=== PATIENT | male | born 1945 | race Caucasian/White ===

== ENCOUNTER 2018-09-01 17:04 | Inpatient (IN) ==
[2018-09-01] MEDS ORDERED: IOPAMIDOL 100 ML BOTTLE IV ONE (17:05)
--- NOTE | 2018-09-01 18:02 | Emergency Department Note ---
Weakness HPI - General Chief complaint: Weakness Stated complaint: headache, lethargy Time Seen by Provider: 09/01/18 17:25 Source: patient, family Mode of arrival: wheelchair Limitations: no limitations - History of Present Illness HPI Narrative: 73-year-old male in ED with present. When inquired with patient what brings him in he advises low back pain. advises patient has "been out of it for 1 week". He has been only eating one cup a yogurt a day and a little bit of water. He is still taking antibiotics from sinusitis one week ago. This is his third trip to the ER in the last month and he was transported to his cardiac doctor on August 17. Candle Maker advised her heart looks good and was returned home the next day. He was diagnosed with influenza and a at that time. Patient does have a history of osteoarthritis. states she has had to wake him up all week which is not normal. And he has been using his CPAP all day while sleeping. Today upon arrival into the ER he was 88% on room air. Patient does still have a cough. Patient unable to answer questions he does have slight altered mentation. states he remembers something for a little while such as the date. Patient did advise it was August and and originally stated was 1999 then slowly6 corrected to 2018. Does not know the date or who the president is or why he is here. Complaint: generalized weakness, lack of energy Onset (ago): week(s) (1) Duration: constant Location: generalized Improves with: none Worsens with: none Context: recent illness (influenza A and sinusitis) Associated symptoms: Reports: confusion, headaches, loss of appetite, shortness of breath. Denies: chest pain, dark stools, diaphoresis, dysuria, easy bruising, fever/chills, nausea/vomiting - Related Data Home Medications Medication Instructions Recorded Confirmed allopurinol 300 mg tablet 300 mg PO QDAY 01/16/15 09/02/18 amlodipine 10 mg tablet 10 mg PO QDAY 01/16/15 09/02/18 aspirin 325 mg tablet 325 mg PO QDAY 01/16/15 09/02/18 atorvastatin 40 mg tablet 40 mg PO QDAY 01/16/15 09/02/18 clonidine HCl 0.2 mg tablet 0.2 mg PO QDAY tab 01/16/15 09/02/18 fenofibrate nanocrystallized 145 145 mg PO QDAY 01/16/15 09/02/18 mg tablet furosemide 20 mg tablet 20 mg PO BID tab 01/16/15 09/02/18 metformin 850 mg tablet 850 mg PO BID 01/16/15 09/02/18 multivitamin tablet 1 tab PO QDAY 01/16/15 09/02/18 spironolactone 25 mg tablet 25 mg PO BID 01/16/15 09/02/18 magnesium 200 mg tablet 400 mg PO QDAY tab 04/14/16 09/02/18 cyanocobalamin (vit B-12) 5,000 5,000 mcg SUBLINGUAL QDAY 08/10/16 09/02/18 mcg sublingual tablet diphenhydramine 25 4 tab-cap PO QHS tab 08/10/16 09/02/18 mg-acetaminophen 500 mg tablet glucosamine-chondroitin 2 tablet PO DAILY 08/10/16 09/02/18 lisinopril 20 mg tablet 10 mg PO BID tab 08/10/16 09/02/18 ferrous sulfate 325 mg (65 mg 325 mg PO BID tab 11/10/16 09/02/18 iron) tablet insulin glargine (U- 100) 100 See Rx Instructions .ROUTE 08/20/17 09/02/18 unit/mL subcutaneous solution .COMPLEX ml alfuzosin ER 10 mg tablet,extended 10 mg PO QDAY 07/19/18 09/02/18 release 24 hr cholecalciferol (vitamin D3) 2,000 2,000 unit PO QDAY 07/19/18 09/02/18 unit capsule gabapentin 300 mg capsule 300 mg PO BID 07/19/18 09/01/18 omega [id number] oil 1,000 mg 1 cap PO BID 07/19/18 09/01/18 (120 mg-180 mg) capsule sildenafil 100 mg tablet 100 mg PO ONCE PRN tab 07/19/18 09/02/18 tamsulosin 0.4 mg capsule 0.4 mg PO QDAY 07/19/18 09/02/18 zolpidem 10 mg tablet 10 mg PO QHS tab 07/19/18 09/01/18 Amoxicillin 500 mg PO BID 09/01/18 09/01/18 Amoxicillin/Potassium Clav 875 mg PO BID 09/01/18 09/01/18 [Augmentin] Previous Rx's Medication Instructions Recorded oxyCODONE HCL/ACETAMINOPHEN 1 tab PO Q6H PRN #30 tab 10/03/15 [Percocet 7.5-325 mg Tablet] albuterol sulfate HFA 90 2 puff INHALATION Q6H PRN #8.5 g 08/16/18 mcg/actuation aerosol inhaler Allergies Allergy/AdvReac Type Severity Reaction Status Date / Time No Known Drug Allergies Allergy Verified 08/24/18 18:20 Review of Systems All systems ED: reviewed and negative except as stated. Past Medical History - Past Medical History [facility] Narrative: All Active Problems (Last Updated 08/24/18 @ 22:22 by Nasir Granados DO) Headache (Acute) Weakness (Acute) Diabetes mellitus, type II (Chronic) Chronic kidney disease, stage III (moderate) (Chronic 06/05/12) Obesity, morbid (Chronic) BINA (obstructive sleep apnea) (Chronic) Hypertensive heart disease, 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) Hyperlipidemia (Chronic) HTN (hypertension) (Chronic) Cough (Acute) Kidney stone (Chronic ~1988) Insomnia (Chronic) Abdominal pain (Chronic) Pericardial effusion (Chronic) Mass of sacrum (Chronic) Anxiety (Chronic) Breast disorder (Chronic) Leg cramps (Chronic) Neuralgia (Chronic) GERD (gastroesophageal reflux disease) (Chronic) SOB (shortness of breath) (Chronic) Osteoarthritis (Chronic) Primary erectile dysfunction (Chronic) Systolic heart failure (Chronic) Coronary arteriosclerosis (Chronic) Iron deficiency anemia (Chronic) Schwannoma of spinal cord (Chronic) Schwannoma (Chronic) Benign prostatic hyperplasia without lower urinary tract symptoms (Chronic) Pericardial effusion (Acute) Inflamed skin tag (Acute) Shingles (Acute) Encounter for medication refill (Acute) Anemia (Chronic) Hypertensive renal disease (Chronic) History of umbilical hernia repair (Chronic) History of colon surgery (Chronic) History of colon polyps (Chronic) Vitamin D deficiency (Chronic) Renal osteodystrophy (Chronic) Peripheral neuropathy (Chronic) Obesity (Chronic) Metabolic syndrome X (Chronic) Hyperuricemia (Chronic) Hypertriglyceridemia (Chronic) Past Surgical History (Last Updated 07/19/18 @ 11:50 by Carolyn Carrillo) History of umbilical hernia repair (Chronic) History of colon surgery (Chronic) History of colon polyps (Chronic) H/O carpal tunnel repair (Chronic 06/11/15) H/O hand surgery (Chronic) H/O knee surgery (Chronic) Hx of tonsillectomy (Chronic) Family History (This Medical Record has been edited. Action required.) Maternal Grandmother Congestive heart failure Brother Atherosclerosis of coronary artery Mother Essential hypertension Congestive heart failure DMII (diabetes mellitus, type 2) Unknown Hypertension Medical history: Reports: DM, renal disease, other, CAD (coronary artery disease) Psychiatric history: Denies: anxiety, depression Surgical history ED: Reports: angioplasty/stent - Social History smoking status: Former smoker Alcohol use: Reports: None Drug use: Reports: none. Denies: marijuana Physical Exam Limitations: no limitations General appearance: alert, in no apparent distress, malaise, obese, sleepy Head: atraumatic, normocephalic, normal inspection Eye: Present: miosis (constriction). Absent: scleral icterus, conjunctival injection ENT: normal oropharynx, mucous membranes moist, TM's normal bilaterally, normal external ear exam Neck: Present: normal inspection, trachea midline. Absent: tenderness, lymphadenopathy Chest: Present: normal inspection, symmetric chest wall rise. Absent: tenderness Respiratory: Present: normal lung sounds bilaterally. Absent: respiratory distress, rales/crackles Cardiovascular: Present: regular rate, normal rhythm. Absent: systolic murmur, diastolic murmur Abdominal: Present: distention, tenderness, diminished bowel sounds. Absent: guarding, rebound, rigidity Abdominal tenderness: Present: diffuse Extremities: Present: normal inspection, pedal edema (1+ pt wearing catalina hose). Absent: tenderness Back: Present: normal inspection. Absent: tenderness, CVA tenderness (R), CVA tenderness (L) Neurological: Present: alert. Absent: oriented X3 Psychiatric: Present: depressed Skin: Present: warm, dry, intact, normal color. Absent: cool, diaphoretic Course Vital Signs Temperature 98.6 F 09/01/18 17:05 Pulse Rate 89 09/01/18 17:05 Respiratory Rate 20 09/01/18 17:05 Blood Pressure 163/71 09/01/18 17:05 Pulse Oximetry (%) 89 L 09/01/18 17:05 Temperature 97.6 F 09/05/18 09:36 Pulse Rate 80 09/05/18 09:36 Respiratory Rate 22 09/05/18 09:36 Blood Pressure 121/65 09/05/18 09:36 Pulse Oximetry (%) 93 09/05/18 09:36 Weakness - MDM Narrative Medical decision making narrative: Patient arrived in the ED with shortness of breath and 88% SPO2 on room air. Patient also with altered mental status. Pt does not recall the last 3 weeks, he is able to discuss his family. Place patient on oxygen sat him straight out patient quickly increases his SPO2 to 96-97 on 2 L. Patient is oriented to self and intermittently can appropriately answer questions. WBC 10.8 which is decreased from 8 days ago. Patient's anemia stable slightly improving. Sodium 128, potassium 5.0, anion gap 11, BUN 31, creatinine 1.2, gl ucose 230 and his last A1c in May 31 was 7.4, patient's proBNP less than 50, lipase 49, pro-calcitonin 0.1. Patient's venous blood gas pH 7.42, PCO2 45.2, PCO2 64, pH C03 28.9, total CO2 30.2, O2 saturation 84.8, base excess 3.8, lactic acid 0.7. Consulted with Dr. Lee who advised to provide patient 0.2 mg Flumazenil, and screen UDS. This was done and patient had no changes. Dr. Lee accepted pt into Observation. - Medical Records Medical records reviewed: Yes I reviewed the patient's medical records. Patient has no history of asthma or COPD, 5 cardiac stents placed 5 years ago, CHF with recent checkup one week ago per patient normal. Patient normally does not use oxygen at home. He does use CPAP at night. 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 - Lab Data Lab results reviewed: Yes I reviewed the patient's lab results. Result diagrams: 09/05/18 03:42 09/05/18 03:41 Lab Results 09/01/18 09/01/18 09/01/18 Range/Units 17:25 17:25 17:25 WBC 10.8 (4.5-11.0) K/mcL RBC 4.22 L (4.50-5.90) M/mcL Hgb 12.5 L (13.5-16.5) g/dL Hct 37.5 L (41.0-55.0) % POC Hct 37.0 L (41.0-55.0) % MCV 88.9 (80.0-100.0) fL MCH 29.6 (26.0-34.0) pg MCHC 33.3 (31.0-36.0) g/dL RDW 14.3 (11.5-14.5) % Plt Count 207 (140-440) K/mcL MPV 8.3 (7.4-10.4) fL Total Counted Seg Neutrophils % (38-78) % Band Neutrophils % Lymphocytes % (15-49) % Monocytes % (Manual) (1-12) % Eosinophils % (Manual) (0-7) % Platelet Estimate (NORMAL) RBC Morphology (NORMAL) Polychromasia (NONE SEEN) ABG Methemoglobin (0.4-1.5) % VBG pH (7.32-7.42) U VBG pCO2 (41.0-51.0) mmHg VBG pO2 (25-40) mmHg VBG HCO3 (24.0-28.0) mmol/L VBG Total CO2 (25.0-29.0) mmol/L VBG O2 Saturation (40.0-70.0) % VBG Base Excess (-2.0-2.0) VBG Lactic Acid (0.5-2.0) mmol/L Carboxyhemoglobin (0.0-1.5) % THgb Total Hemoglobin (13.5-16.5) gm/dL O2 Delivery Level POC Sodium 127 L (133-145) mmol/L Sodium 128 L (133-145) mmol/L POC Potassium 5.3 H (3.3-5.1) mmol/L Potassium 5.0 (3.3-5.1) mmol/L POC Chloride 91 L (96-108) mmol/L Chloride 91 L (96-108) mmol/L Carbon Dioxide 26 (22-30) mmol/L POC Total CO2 27 (22-30) mmol/L Anion Gap 11.0 (8-16) POC BUN 29 H (8-23) mg/dl BUN 31 H (8-23) mg/dl Creatinine 1.2 (0.7-1.2) mg/dl POC Creatinine 1.4 H (0.7-1.2) mg/dl GFR Calculation 59 Glucose 230 H (70-105) mg/dL POC Glucose 228 H (70-105) mg/dL Uric Acid (2.5-8.0) mg/dL Calcium 9.3 (8.6-10.4) mg/dl POC WB Ioniz Calcium 1.19 (1.16-1.32) mmol/L Phosphorus (2.7-4.5) mg/dL Magnesium (1.6-2.5) mg/dL Total Bilirubin 0.4 (0.0-1.0) mg/dL Direct Bilirubin (0.0-0.3) mg/dL GGT (8-61) U/L AST 10 (0-37) U/l ALT 12 (0-40) U/l Alkaline Phosphatase 65 (39-117) U/L Ammonia (16-60) umol/L Lactate Dehydrogenase (94-250) U/L NT-Pro-B Natriuret Pep < 50.0 (0-450) pg/ml Total Protein 7.0 (5.9-8.4) gm/dL Albumin 3.8 (3.2-5.2) gm/dL Globulin 3.2 (2.2-3.7) gm/dL Albumin/Globulin Ratio 1.2 (1.0-2.3) Triglycerides (<150) mg/dl Lipase 49 (7-60) U/L Procalcitonin 0.10 (<0.10) ng/mL Urine Opiates Screen (NONDETECTED) Ur Opiates Confirm (N) ng/mL Ur Oxycodone Screen (NONDETECTED) Urine Methadone Screen (NONDETECTED) Ur Methadone Confirm Ur Barbiturates Screen (NONDETECTED) Ur Barbiturate Confirm Ur Phencyclidine Scrn (NONDETECTED) Urine PCP Confirm Ur Amphetamines Screen (NONDETECTED) U Amphetamines Confirm U Benzodiazepines Scrn (NONDETECTED) U Benzodiazepine Confm Urine Cocaine Screen (NONDETECTED) Urine Cocaine Confirm U Cannabinoids Confirm U Marijuana (THC) Screen (NONDETECTED) Ethyl Alcohol (<0.010) gm/dl 09/01/18 09/01/18 09/01/18 Range/Units 17:25 18:25 18:25 WBC (4.5-11.0) K/mcL RBC (4.50-5.90) M/mcL Hgb (13.5-16.5) g/dL Hct (41.0-55.0) % POC Hct (41.0-55.0) % MCV (80.0-100.0) fL MCH (26.0-34.0) pg MCHC (31.0-36.0) g/dL RDW (11.5-14.5) % Plt Count (140-440) K/mcL MPV (7.4-10.4) fL Total Counted Seg Neutrophils % (38-78) % Band Neutrophils % Lymphocytes % (15-49) % Monocytes % (Manual) (1-12) % Eosinophils % (Manual) (0-7) % Platelet Estimate (NORMAL) RBC Morphology (NORMAL) Polychromasia (NONE SEEN) ABG Methemoglobin 0.3 L (0.4-1.5) % VBG pH 7.42 (7.32-7.42) U VBG pCO2 45.2 (41.0-51.0) mmHg VBG pO2 64 H (25-40) mmHg VBG HCO3 28.9 H (24.0-28.0) mmol/L VBG Total CO2 30.2 H (25.0-29.0) mmol/L VBG O2 Saturation 84.8 H (40.0-70.0) % VBG Base Excess 3.8 H (-2.0-2.0) VBG Lactic Acid 0.7 (0.5-2.0) mmol/L Carboxyhemoglobin 4.0 H (0.0-1.5) % THgb Total Hemoglobin 12.4 L (13.5-16.5) gm/dL O2 Delivery Level Not Reportable POC Sodium (133-145) mmol/L Sodium (133-145) mmol/L POC Potassium (3.3-5.1) mmol/L Potassium (3.3-5.1) mmol/L POC Chloride (96-108) mmol/L Chloride (96-108) mmol/L Carbon Dioxide (22-30) mmol/L POC Total CO2 (22-30) mmol/L Anion Gap (8-16) POC BUN (8-23) mg/dl BUN (8-23) mg/dl Creatinine (0.7-1.2) mg/dl POC Creatinine (0.7-1.2) mg/dl GFR Calculation Glucose (70-105) mg/dL POC Glucose (70-105) mg/dL Uric Acid (2.5-8.0) mg/dL Calcium (8.6-10.4) mg/dl POC WB Ioniz Calcium (1.16-1.32) mmol/L Phosphorus (2.7-4.5) mg/dL Magnesium (1.6-2.5) mg/dL Total Bilirubin (0.0-1.0) mg/dL Direct Bilirubin (0.0-0.3) mg/dL GGT (8-61) U/L AST (0-37) U/l ALT (0-40) U/l Alkaline Phosphatase (39-117) U/L Ammonia (16-60) umol/L Lactate Dehydrogenase (94-250) U/L NT-Pro-B Natriuret Pep (0-450) pg/ml Total Protein (5.9-8.4) gm/dL Albumin (3.2-5.2) gm/dL Globulin (2.2-3.7) gm/dL Albumin/Globulin Ratio (1.0-2.3) Triglycerides (<150) mg/dl Lipase (7-60) U/L Procalcitonin (<0.10) ng/mL Urine Opiates Screen (NONDETECTED) Ur Opiates Confirm (N) ng/mL Ur Oxycodone Screen (NONDETECTED) Urine Methadone Screen (NONDETECTED) Ur Methadone Confirm Ur Barbiturates Screen (NONDETECTED) Ur Barbiturate Confirm Ur Phencyclidine Scrn (NONDETECTED) Urine PCP Confirm Ur Amphetamines Screen (NONDETECTED) U Amphetamines Confirm U Benzodiazepines Scrn (NONDETECTED) U Benzodiazepine Confm Urine Cocaine Screen (NONDETECTED) Urine Cocaine Confirm U Cannabinoids Confirm U Marijuana (THC) Screen (NONDETECTED) Ethyl Alcohol < 0.010 (<0.010) gm/dl 09/01/18 09/02/18 09/02/18 Range/Units 20:30 00:20 03:51 WBC 9.5 (4.5-11.0) K/mcL RBC 4.22 L (4.50-5.90) M/mcL Hgb 12.3 L (13.5-16.5) g/dL Hct 38.0 L (41.0-55.0) % POC Hct (41.0-55.0) % MCV 90.0 (80.0-100.0) fL MCH 29.2 (26.0-34.0) pg MCHC 32.5 (31.0-36.0) g/dL RDW 13.9 (11.5-14.5) % Plt Count 204 (140-440) K/mcL MPV 8.3 (7.4-10.4) fL Total Counted 100 Seg Neutrophils % 85 H (38-78) % Band Neutrophils % Not Reportable Lymphocytes % 8 L (15-49) % Monocytes % (Manual) 6 (1-12) % Eosinophils % (Manual) 1 (0-7) % Platelet Estimate Normal (NORMAL) RBC Morphology Abnorm A (NORMAL) Polychromasia 1+ A (NONE SEEN) ABG Methemoglobin (0.4-1.5) % VBG pH (7.32-7.42) U VBG pCO2 (41.0-51.0) mmHg VBG pO2 (25-40) mmHg VBG HCO3 (24.0-28.0) mmol/L VBG Total CO2 (25.0-29.0) mmol/L VBG O2 Saturation (40.0-70.0) % VBG Base Excess (-2.0-2.0) VBG Lactic Acid (0.5-2.0) mmol/L Carboxyhemoglobin (0.0-1.5) % THgb Total Hemoglobin (13.5-16.5) gm/dL O2 Delivery Level POC Sodium (133-145) mmol/L Sodium 127 L (133-145) mmol/L POC Potassium (3.3-5.1) mmol/L Potassium (3.3-5.1) mmol/L POC Chloride (96-108) mmol/L Chloride (96-108) mmol/L Carbon Dioxide (22-30) mmol/L POC Total CO2 (22-30) mmol/L Anion Gap (8-16) POC BUN (8-23) mg/dl BUN (8-23) mg/dl Creatinine (0.7-1.2) mg/dl POC Creatinine (0.7-1.2) mg/dl GFR Calculation Glucose (70-105) mg/dL POC Glucose (70-105) mg/dL Uric Acid (2.5-8.0) mg/dL Calcium (8.6-10.4) mg/dl POC WB Ioniz Calcium (1.16-1.32) mmol/L Phosphorus (2.7-4.5) mg/dL Magnesium (1.6-2.5) mg/dL Total Bilirubin (0.0-1.0) mg/dL Direct Bilirubin (0.0-0.3) mg/dL GGT (8-61) U/L AST (0-37) U/l ALT (0-40) U/l Alkaline Phosphatase (39-117) U/L Ammonia (16-60) umol/L Lactate Dehydrogenase (94-250) U/L NT-Pro-B Natriuret Pep (0-450) pg/ml Total Protein (5.9-8.4) gm/dL Albumin (3.2-5.2) gm/dL Globulin (2.2-3.7) gm/dL Albumin/Globulin Ratio (1.0-2.3) Triglycerides (<150) mg/dl Lipase (7-60) U/L Procalcitonin (<0.10) ng/mL Urine Opiates Screen None detected (NONDETECTED) Ur Opiates Confirm Positive (N) ng/mL Ur Oxycodone Screen Suspect positive A (NONDETECTED) Urine Methadone Screen None detected (NONDETECTED) Ur Methadone Confirm Not Reportable Ur Barbiturates Screen None detected (NONDETECTED) Ur Barbiturate Confirm Not Reportable Ur Phencyclidine Scrn None detected (NONDETECTED) Urine PCP Confirm Not Reportable Ur Amphetamines Screen None detected (NONDETECTED) U Amphetamines Confirm Not Reportable U Benzodiazepines Scrn None detected (NONDETECTED) U Benzodiazepine Confm Not Reportable Urine Cocaine Screen None detected (NONDETECTED) Urine Cocaine Confirm Not Reportable U Cannabinoids Confirm Not Reportable U Marijuana (THC) Screen None detected (NONDETECTED) Ethyl Alcohol (<0.010) gm/dl 09/02/18 09/02/18 09/03/18 Range/Units 03:51 07:55 03:35 WBC 9.4 (4.5-11.0) K/mcL RBC 4.42 L (4.50-5.90) M/mcL Hgb 13.0 L (13.5-16.5) g/dL Hct 39.6 L (41.0-55.0) % POC Hct (41.0-55.0) % MCV 89.5 (80.0-100.0) fL MCH 29.3 (26.0-34.0) pg MCHC 32.7 (31.0-36.0) g/dL RDW 14.1 (11.5-14.5) % Plt Count 251 (140-440) K/mcL MPV 8.1 (7.4-10.4) fL Total Counted 100 Seg Neutrophils % 74 (38-78) % Band Neutrophils % 2 Lymphocytes % 16 (15-49) % Monocytes % (Manual) 8 (1-12) % Eosinophils % (Manual) (0-7) % Platelet Estimate Normal (NORMAL) RBC Morphology Normal (NORMAL) Polychromasia (NONE SEEN) ABG Methemoglobin (0.4-1.5) % VBG pH (7.32-7.42) U VBG pCO2 (41.0-51.0) mmHg VBG pO2 (25-40) mmHg VBG HCO3 (24.0-28.0) mmol/L VBG Total CO2 (25.0-29.0) mmol/L VBG O2 Saturation (40.0-70.0) % VBG Base Excess (-2.0-2.0) VBG Lactic Acid (0.5-2.0) mmol/L Carboxyhemoglobin (0.0-1.5) % THgb Total Hemoglobin (13.5-16.5) gm/dL O2 Delivery Level POC Sodium (133-145) mmol/L Sodium 130 L 127 L (133-145) mmol/L POC Potassium (3.3-5.1) mmol/L Potassium 5.1 (3.3-5.1) mmol/L POC Chloride (96-108) mmol/L Chloride 90 L (96-108) mmol/L Carbon Dioxide 29 (22-30) mmol/L POC Total CO2 (22-30) mmol/L Anion Gap 11.0 (8-16) POC BUN (8-23) mg/dl BUN 28 H (8-23) mg/dl Creatinine 1.2 (0.7-1.2) mg/dl POC Creatinine (0.7-1.2) mg/dl GFR Calculation 59 Glucose 184 H (70-105) mg/dL POC Glucose (70-105) mg/dL Uric Acid 6.0 (2.5-8.0) mg/dL Calcium 9.6 (8.6-10.4) mg/dl POC WB Ioniz Calcium (1.16-1.32) mmol/L Phosphorus 2.8 (2.7-4.5) mg/dL Magnesium 1.9 (1.6-2.5) mg/dL Total Bilirubin 0.4 (0.0-1.0) mg/dL Direct Bilirubin < 0.2 (0.0-0.3) mg/dL GGT 28 (8-61) U/L AST 11 (0-37) U/l ALT 11 (0-40) U/l Alkaline Phosphatase 63 (39-117) U/L Ammonia (16-60) umol/L Lactate Dehydrogenase 178 (94-250) U/L NT-Pro-B Natriuret Pep (0-450) pg/ml Total Protein 7.0 (5.9-8.4) gm/dL Albumin 3.8 (3.2-5.2) gm/dL Globulin 3.2 (2.2-3.7) gm/dL Albumin/Globulin Ratio 1.2 (1.0-2.3) Triglycerides 203 H (<150) mg/dl Lipase (7-60) U/L Procalcitonin (<0.10) ng/mL Urine Opiates Screen (NONDETECTED) Ur Opiates Confirm (N) ng/mL Ur Oxycodone Screen (NONDETECTED) Urine Methadone Screen (NONDETECTED) Ur Methadone Confirm Ur Barbiturates Screen (NONDETECTED) Ur Barbiturate Confirm Ur Phencyclidine Scrn (NONDETECTED) Urine PCP Confirm Ur Amphetamines Screen (NONDETECTED) U Amphetamines Confirm U Benzodiazepines Scrn (NONDETECTED) U Benzodiazepine Confm Urine Cocaine Screen (NONDETECTED) Urine Cocaine Confirm U Cannabinoids Confirm U Marijuana (THC) Screen (NONDETECTED) Ethyl Alcohol (<0.010) gm/dl 09/03/18 09/03/18 Range/Units 03:35 09:24 WBC (4.5-11.0) K/mcL RBC (4.50-5.90) M/mcL Hgb (13.5-16.5) g/dL Hct (41.0-55.0) % POC Hct (41.0-55.0) % MCV (80.0-100.0) fL MCH (26.0-34.0) pg MCHC (31.0-36.0) g/dL RDW (11.5-14.5) % Plt Count (140-440) K/mcL MPV (7.4-10.4) fL Total Counted Seg Neutrophils % (38-78) % Band Neutrophils % Lymphocytes % (15-49) % Monocytes % (Manual) (1-12) % Eosinophils % (Manual) (0-7) % Platelet Estimate (NORMAL) RBC Morphology (NORMAL) Polychromasia (NONE SEEN) ABG Methemoglobin (0.4-1.5) % VBG pH (7.32-7.42) U VBG pCO2 (41.0-51.0) mmHg VBG pO2 (25-40) mmHg VBG HCO3 (24.0-28.0) mmol/L VBG Total CO2 (25.0-29.0) mmol/L VBG O2 Saturation (40.0-70.0) % VBG Base Excess (-2.0-2.0) VBG Lactic Acid (0.5-2.0) mmol/L Carboxyhemoglobin (0.0-1.5) % THgb Total Hemoglobin (13.5-16.5) gm/dL O2 Delivery Level POC Sodium (133-145) mmol/L Sodium 128 L (133-145) mmol/L POC Potassium (3.3-5.1) mmol/L Potassium 4.3 (3.3-5.1) mmol/L POC Chloride (96-108) mmol/L Chloride 86 L (96-108) mmol/L Carbon Dioxide 30 (22-30) mmol/L POC Total CO2 (22-30) mmol/L Anion Gap 12.0 (8-16) POC BUN (8-23) mg/dl BUN 28 H (8-23) mg/dl Creatinine 1.2 (0.7-1.2) mg/dl POC Creatinine (0.7-1.2) mg/dl GFR Calculation 59 Glucose 187 H (70-105) mg/dL POC Glucose (70-105) mg/dL Uric Acid 6.2 (2.5-8.0) mg/dL Calcium 9.7 (8.6-10.4) mg/dl POC WB Ioniz Calcium (1.16-1.32) mmol/L Phosphorus 3.0 (2.7-4.5) mg/dL Magnesium 1.9 (1.6-2.5) mg/dL Total Bilirubin 0.3 (0.0-1.0) mg/dL Direct Bilirubin < 0.2 (0.0-0.3) mg/dL GGT 31 (8-61) U/L AST 12 (0-37) U/l ALT 12 (0-40) U/l Alkaline Phosphatase 66 (39-117) U/L Ammonia 44 (16-60) umol/L Lactate Dehydrogenase 180 (94-250) U/L NT-Pro-B Natriuret Pep (0-450) pg/ml Total Protein 7.0 (5.9-8.4) gm/dL Albumin 3.8 (3.2-5.2) gm/dL Globulin 3.2 (2.2-3.7) gm/dL Albumin/Globulin Ratio 1.2 (1.0-2.3) Triglycerides 218 H (<150) mg/dl Lipase (7-60) U/L Procalcitonin (<0.10) ng/mL Urine Opiates Screen (NONDETECTED) Ur Opiates Confirm (N) ng/mL Ur Oxycodone Screen (NONDETECTED) Urine Methadone Screen (NONDETECTED) Ur Methadone Confirm Ur Barbiturates Screen (NONDETECTED) Ur Barbiturate Confirm Ur Phencyclidine Scrn (NONDETECTED) Urine PCP Confirm Ur Amphetamines Screen (NONDETECTED) U Amphetamines Confirm U Benzodiazepines Scrn (NONDETECTED) U Benzodiazepine Confm Urine Cocaine Screen (NONDETECTED) Urine Cocaine Confirm U Cannabinoids Confirm U Marijuana (THC) Screen (NONDETECTED) Ethyl Alcohol (<0.010) gm/dl - Radiology Data Radiology results reviewed: Yes I reviewed the patient's radiology results. Chest x-ray: CLINICAL INFORMATION: hypoxia COMPARISON: 08/24/2018 FINDINGS: Marked cardiomegaly show slight increased. Mediastinum is unremarkable. The pulmonary vessels are mildly distended compared to the baseline of 08/18/2018. There is no edema. Minor bibasilar atelectasis noted IMPRESSION: Mild recurrent CHF Interpreted and Authenticated by: Elmer Roach 09/01/18 Abdominal/pelvic CT with contrast: CLINICAL INFORMATION: Abdominal distention and pain COMPARISON: None. TECHNIQUE: Following enteric contrast, 80 cc of Isovue-[id number] were injected intravenously, and 60 seconds later, 0.625 mm helical slices were obtained from the mid heart through the subtrochanteric regions. Following reconstruction, 2.5 mm sagittal, coronal and axial reformatted images were processed and reviewed at bone, lung and soft tissue windows. Five minutes later, 0.625 mm helical slices were obtained from the mid heart through the kidneys and viewed at soft tissue windows.The exam was performed using radiation dose optimization techniques including, but not limited to, automated exposure control, adjustment of the mA and/or kV according to patient size and use of iterative reconstruction technique. FINDINGS: Lung bases show a moderate pericardial effusion which has decreased slightly since a comparison chest CT two weeks ago: 08/18/2018. Mild atelectasis in both posterior lower lobes. No pleural effusions. Images through the abdomen show the liver is unremarkable. A solitary 8 mm stone is present in the gallbladder. The gallbladder wall and bile ducts are normal: CBD is 5 mm. Both kidneys, adrenal glands, spleen, pancreas and aorta, including aortic branches, are normal in size configuration and attenuation without focal lesion. The stomach, small large bowel are normal. There is no free air, free fluid or adenopathy. Pelvic images show normal prostate, seminal vesicles and urinary bladder. Bone windows show 5 cm arachnoid cyst dominating the central sacral canal at S3 with extension into the right S2-3 arcuate foramen IMPRESSION: 1. Moderate pericardial effusion decreasing slightly since CT two weeks prior. Elevated fluid attenuation suggests infection or hemorrhage 2. Solitary 5 mm stone in the gallbladder. The gallbladder and bile ducts are otherwise normal. 3. 5 cm arachnoid cyst eroding and dominating the sacral canal at S2-3 extends into the right mesenteric foramen. Is usually asymptomatic but occasionally can cause sacral radiculopathy. Interpreted and Authenticated by: Elmer Roach 09/01/18 Disposition Pt seen by [facility]/PA only: No (Felipe) Clinical Impression: Hypoxia Congestive heart failure (CHF) Qualifiers: Heart failure type: systolic Heart failure chronicity: chronic Qualified Code(s): I50.22 - Chronic systolic (congestive) heart failure Altered mental status Qualifiers: Altered mental status type: disorientation Qualified Code(s): R41.0 - Disorientation, unspecified Disposition: Xfer As Inpt ([facility]) Condition: Fair Time of Disposition: 14:50
[2018-09-01 18:26] LABS: Hematocrit 37.5 % (41.0-55.0); Hemoglobin 12.5 g/dL (13.5-16.5); Mean Cell Volume 88.9 fL (80.0-100.0); Mean Corpuscular HGB Conc 33.3 g/dL (31.0-36.0); Mean Platelet Volume 8.3 fL (7.4-10.4); Platelet Count 207 K/mcL (140-440); RBC 4.22 M/mcL (4.50-5.90); Red Cell Distribution Width 14.3 % (11.5-14.5); WBC 10.8 K/mcL (4.5-11.0)
[2018-09-01 18:30] LABS: POC Blood Urea Nitrogen 29 mg/dl (8-23); POC CO2 27 mmol/L (22-30); POC Calcium, Ionized 1.19 mmol/L (1.16-1.32); POC Chloride 91 mmol/L (96-108); POC Creatinine 1.4 mg/dl (0.7-1.2); POC Glucose, Random 228 mg/dL (70-105); POC Potassium 5.3 mmol/L (3.3-5.1); POC Sodium 127 mmol/L (133-145)
--- NOTE | 2018-09-01 18:42 | XRay Report ---
CLINICAL INFORMATION: hypoxia COMPARISON: 08/24/2018 FINDINGS: Marked cardiomegaly show slight increased. Mediastinum is unremarkable. The pulmonary vessels are mildly distended compared to the baseline of 08/18/2018. There is no edema. Minor bibasilar atelectasis noted IMPRESSION: Mild recurrent CHF Interpreted and Authenticated by: Elmer Roach 09/01/18
[2018-09-01 18:43] LABS: proBNP < 50.0 pg/ml (0-450)
[2018-09-01 18:45] LABS: ALT/SGPT 12 U/l (0-40); AST/SGOT 10 U/l (0-37); Albumin 3.8 gm/dL (3.2-5.2); Albumin/Globulin Ratio 1.2 (1.0-2.3); Alkaline Phosphatase 65 U/L (39-117); Bilirubin,Total 0.4 mg/dL (0.0-1.0); Blood Urea Nitrogen 31 mg/dl (8-23); Calcium 9.3 mg/dl (8.6-10.4); Carbon Dioxide 26 mmol/L (22-30); Chloride 91 mmol/L (96-108); Globulin 3.2 gm/dL (2.2-3.7); Glomerular Filtration Rate 59; Glucose 230 mg/dL (70-105); Lipase 49 U/L (7-60); Sodium 128 mmol/L (133-145)
[2018-09-01] MEDS ORDERED: FUROSEMIDE 40 MG/4 ML VIAL IV ONE (18:51)
[2018-09-01 18:53] LABS: ABG Methemoglobin 0.3 % (0.4-1.5); Total Hemoglobin 12.4 gm/dL (13.5-16.5); VBG Base Excess 3.8 (-2.0-2.0); VBG HCO3 28.9 mmol/L (24.0-28.0); VBG Oxygen Saturation 84.8 % (40.0-70.0); VBG PCO2 45.2 mmHg (41.0-51.0); VBG PH 7.42 U (7.32-7.42); VBG PO2 64 mmHg (25-40); VBG Total CO2 30.2 mmol/L (25.0-29.0)
--- NOTE | 2018-09-01 19:36 | Cat Scan Report ---
CLINICAL INFORMATION: Abdominal distention and pain COMPARISON: None. TECHNIQUE: Following enteric contrast, 80 cc of Isovue-300 were injected intravenously, and 60 seconds later, 0.625 mm helical slices were obtained from the mid heart through the subtrochanteric regions. Following reconstruction, 2.5 mm sagittal, coronal and axial reformatted images were processed and reviewed at bone, lung and soft tissue windows. Five minutes later, 0.625 mm helical slices were obtained from the mid heart through the kidneys and viewed at soft tissue windows.The exam was performed using radiation dose optimization techniques including, but not limited to, automated exposure control, adjustment of the mA and/or kV according to patient size and use of iterative reconstruction technique. FINDINGS: Lung bases show a moderate pericardial effusion which has decreased slightly since a comparison chest CT two weeks ago: 08/18/2018. Mild atelectasis in both posterior lower lobes. No pleural effusions. Images through the abdomen show the liver is unremarkable. A solitary 8 mm stone is present in the gallbladder. The gallbladder wall and bile ducts are normal: CBD is 5 mm. Both kidneys, adrenal glands, spleen, pancreas and aorta, including aortic branches, are normal in size configuration and attenuation without focal lesion. The stomach, small large bowel are normal. There is no free air, free fluid or adenopathy. Pelvic images show normal prostate, seminal vesicles and urinary bladder. Bone windows show 5 cm arachnoid cyst dominating the central sacral canal at S3 with extension into the right S2-3 arcuate foramen IMPRESSION: 1. Moderate pericardial effusion decreasing slightly since CT two weeks prior. Elevated fluid attenuation suggests infection or hemorrhage 2. Solitary 5 mm stone in the gallbladder. The gallbladder and bile ducts are otherwise normal. 3. 5 cm arachnoid cyst eroding and dominating the sacral canal at S2-3 extends into the right mesenteric foramen. Is usually asymptomatic but occasionally can cause sacral radiculopathy. Interpreted and Authenticated by: Elmer Roach 09/01/18
[2018-09-01] MEDS ORDERED: FLUMAZENIL 0.1 MG/ML ML IV ONE (20:02)
[2018-09-01 20:21] LABS: Alcohol, Blood < 10.0 mg/dL (<10); Alcohol,Blood < 0.010 gm/dl (<0.010)
[2018-09-01 21:14] LABS: Amphetamine Screen,Urine NONE DETECTED (NONDETECTED); Barbiturate Screen,Urine NONE DETECTED (NONDETECTED); Benzodiazepines Screen,Urine NONE DETECTED (NONDETECTED); Cannabinoid Screen,Urine NONE DETECTED (NONDETECTED); Cocaine Screen,Urine NONE DETECTED (NONDETECTED); Opiate Screen,Urine NONE DETECTED (NONDETECTED); Oxycodone, Urine Screen SUSPECT POSITIVE (NONDETECTED); Phencyclidine Screen,Urine NONE DETECTED (NONDETECTED)
--- NOTE | 2018-09-01 21:35 | Internal Med History&Physical ---
Medical - H&P: HPI Patient information: Note initiated : 09/01/18 at 9:35 pm Service Date, if different from initiated Date: [] Patient: Unique Guallpa 73 y/o M admitted on for headache, lethargy. Chief Complaint: [] Chief complaint: weakness, confusion History of present illness: Mr. Guallpa is a 73 year old M morbidly obese with history of chronic disease/DM type 2/hypertension who presents to [facility] ER along with his with progressive decline in overall health over the last one week which resulted in patient being nonfunctional, laying in bed. As per patient has been able to perform activities of daily living and has not been in his normal self. Patient has been fatigued and lethargic with poor appetite. He also complains of low-grade fever. However denies shortness of breath, cough, diarrhea. He was recently diagnosed with sinusitis/influenza and has been on antibiotics( Augmentin). Last 24 hours patient has been barely arousable, unable to eat or get out of bed. Patient normally is independent with ADLs and this is a dramatic change from his baseline. Initial workup in the ER consistent with change in mental status with a tox screen positive for opioids however normal biochemical profile except for sodium 127. No clear evidence of infection. Mild CHF on chest imaging. There was no response to Romazicon. Hospitalist service was consulted for admission in light of above At the time evaluation patient is able to answer some of the questions but confused to time and place. He denies chest pain headache. Endorses to weakness and loss of appetite. Review of systems 10 point review of system was performed and is negative surveillance Medical - H&P: PMH Medical history: Shingles (Acute) Encounter for medication refill (Acute) Anemia (Chronic) Hypertensive renal disease (Chronic) BP at goal weight loss has helped with this Advised to check BP at home, if gets below 110, hold pm dose of furosemide ct other meds will monitor Vitamin D deficiency (Chronic) Sleep apnea (Chronic) Renal osteodystrophy (Chronic) Peripheral neuropathy (Chronic) Obesity, morbid (Chronic) lost 30 lbs, still has another 100 lbs to loose before will reach target weight advised to stay motivated Obesity (Chronic) Metabolic syndrome X (Chronic) Hyperuricemia (Chronic) Hypertriglyceridemia (Chronic) Hypertensive heart disease, 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) Hyperlipidemia (Chronic) LDL at goal TG improved from 300 to [address] statins follow lifestyle changes HTN (hypertension) (Chronic) Diabetes mellitus, type II (Chronic) Chronic kidney disease, stage III (moderate) (Chronic 06/05/12) Surgical History History of umbilical hernia repair (Chronic) History of colon surgery (Chronic) History of colon polyps (Chronic) Removal H/O carpal tunnel repair (Chronic 06/11/15) right Family History Maternal Grandmother Congestive heart failure Brother Atherosclerosis of coronary artery Mother Essential hypertension Social History smoking status: Former smoker alcohol intake frequency: does not drink Medical - H&P: Meds Home Medications Medication Instructions Recorded Confirmed Type allopurinol 300 mg tablet 300 mg PO QDAY 01/16/15 08/16/18 History amlodipine 10 mg tablet 10 mg PO QDAY 01/16/15 08/16/18 History aspirin 325 mg tablet 325 mg PO QDAY 01/16/15 08/16/18 History atorvastatin 40 mg tablet 40 mg PO QDAY 01/16/15 08/16/18 History clonidine HCl 0.2 mg tablet 0.2 mg PO QDAY tab 01/16/15 08/16/18 History fenofibrate nanocrystallized 145 145 mg PO QDAY 01/16/15 08/16/18 History mg tablet furosemide 20 mg tablet 20 mg PO BID tab 01/16/15 08/16/18 History metformin 850 mg tablet 850 mg PO BID 01/16/15 08/16/18 History multivitamin tablet 1 tab PO QDAY 01/16/15 08/16/18 History omega-3 fatty acids-fish oil 684 See Dose Instructions PO BID cap 01/16/15 08/16/18 History mg-1,200 mg capsule,delayed release spironolactone 25 mg tablet 25 mg PO BID 01/16/15 08/16/18 History oxyCODONE HCL/ACETAMINOPHEN 1 tab PO Q6H PRN #30 tab 10/03/15 08/16/18 Rx [Percocet 7.5-325 mg Tablet] magnesium 200 mg tablet 400 mg PO QDAY tab 04/14/16 08/16/18 History cyanocobalamin (vit B-12) 5,000 5,000 mcg SUBLINGUAL QDAY 08/10/16 08/16/18 History mcg sublingual tablet diphenhydramine 25 4 tab-cap PO QHS tab 08/10/16 08/16/18 History mg-acetaminophen 500 mg tablet glucosamine-chondroitin See Dose Instructions PO BID 08/10/16 08/16/18 History lisinopril 20 mg tablet 10 mg PO BID tab 08/10/16 08/16/18 History ferrous sulfate 325 mg (65 mg 325 mg PO BID tab 11/10/16 08/16/18 History iron) tablet insulin glargine (U- 100) 100 See Rx Instructions .ROUTE 08/20/17 08/16/18 History unit/mL subcutaneous solution .COMPLEX ml saw palmetto 1 capsule PO QDAY 08/20/17 09/01/18 History alfuzosin ER 10 mg tablet,extended 10 mg PO QDAY 07/19/18 08/16/18 History release 24 hr cholecalciferol (vitamin D3) 2,000 2,000 unit PO QDAY 07/19/18 08/16/18 History unit capsule gabapentin 300 mg capsule 300 mg PO BID 07/19/18 09/01/18 History lorazepam 2 mg tablet 2 mg PO QHS PRN 07/19/18 08/16/18 History omega 7-ory-kah-fish oil 1,000 mg 1 cap PO BID 07/19/18 09/01/18 History (120 mg-180 mg) capsule sildenafil 100 mg tablet 100 mg PO ONCE PRN tab 07/19/18 08/16/18 History tamsulosin 0.4 mg capsule 0.4 mg PO QDAY 07/19/18 08/16/18 History zolpidem 10 mg tablet 10 mg PO QHS tab 07/19/18 09/01/18 History albuterol sulfate HFA 90 2 puff INHALATION Q6H PRN #8.5 g 08/16/18 09/01/18 Rx mcg/actuation aerosol inhaler benzonatate 100 mg capsule See Rx Instructions PO .q 8 hours 08/16/18 08/16/18 Rx PRN #30 cap Amoxicillin 500 mg PO BID 09/01/18 09/01/18 History Amoxicillin/Potassium Clav 875 mg PO BID 09/01/18 09/01/18 History [Augmentin] Allergies Allergy/AdvReac Type Severity Reaction Status Date / Time No Known Drug Allergies Allergy Verified 08/24/18 18:20 Medical - H&P: Exam - Constitutional Vitals: Temp Pulse Resp BP Pulse Ox 98.3 F 81 23 H 166/69 92 09/01/18 19:49 09/01/18 21:22 09/01/18 21:22 09/01/18 19:49 09/01/18 21:22 General appearance: morbidly obese Exam: Confused Nonlabored and nondistressed eye movements symmetrical Oral cavity dry Head normocephalic No ear discharge Neck no lymphadenopathy S1 and S2 regular rhythm Abdomen is breath sounds bases Abdomen pendulous but soft Lower extremity no cyanosis clubbing or joint swelling Skin no suspicious lesion Psych cooperative but confused, no agitation Neuro higher functions are normal but symmetrical strength Medical - H&P: Reslt - Labs CBC & Chem 7: 09/02/18 03:51 09/02/18 07:55 Labs: Short CBC 09/01/18 Range/Units 17:25 WBC 10.8 (4.5-11.0) K/mcL Hgb 12.5 L (13.5-16.5) g/dL Hct 37.5 L (41.0-55.0) % Plt Count 207 (140-440) K/mcL BMP 09/01/18 17:25 Sodium 128 L Potassium 5.0 Chloride 91 L Carbon Dioxide 26 BUN 31 H Creatinine 1.2 Glucose 230 H Calcium 9.3 Liver Function 09/01/18 Range/Units 17:25 Total Bilirubin 0.4 (0.0-1.0) mg/dL AST 10 (0-37) U/l ALT 12 (0-40) U/l Alkaline Phosphatase 65 (39-117) U/L Albumin 3.8 (3.2-5.2) gm/dL - ABG Interpretation ABG results: 09/01/18 18:25 ABG Methemoglobin 0.3 L VBG pH 7.42 VBG pCO2 45.2 VBG pO2 64 H VBG HCO3 28.9 H VBG Total CO2 30.2 H VBG O2 Saturation 84.8 H VBG Base Excess 3.8 H Medical - H&P: A/P (1) Change in mental status Current visit: Yes Status: Acute * Acute change in mental status-unclear etiology. Suspect polypharmacy. However recent influenza may be contouring. We will check MRI brain if patient does not show signs of improvement in 24 hours. * Exacerbation of CHF- recent echo from August 18 he had 70%/moderate pericardial effusion * Severe deconditioning/weakness-PT OT/nutrition support * DM type II-restart home meds * Hypertension-restart home meds including amlodipine/lisinopril * BPH continue tamsulosin * Neuropathy -hold gabapentin until mental status improved * CAD-continue aspirin/statin/SUHAS inhibitor * Hyperlipidemia-on statin * History of gout on allopurinol * Prophylaxis heparin * Full code Plan * Observation admit * Diuresis * Avoid benzos/opioids * Pre-existing medical condition management as above * PT OT nutritional support * Telemetry monitoring
[2018-09-01] MEDS ORDERED: ONDANSETRON 4 MG/2 ML VIAL IV PRN (22:45)
[2018-09-01] MEDS ORDERED: ACETAMINOPHEN 1,000 MG/100 ML BOTTLE IV PRN (22:45)
[2018-09-01] MEDS ORDERED: POTASSIUM CHLORIDE 40 MEQ in DEXTROSE 5% IN WATER 500 ML IV PRN (22:45)
[2018-09-01] MEDS ORDERED: DEXTROSE 50% 50 ML VIAL IV PRN (22:45)
[2018-09-01] MEDS ORDERED: DEXTROSE 31 GM ORAL.SUSP PO PRN (22:45)
[2018-09-01] MEDS ORDERED: MAGNESIUM SULFATE 2 GM/50 ML BAG IV PRN (22:45)
[2018-09-01] MEDS: 0.9 % SODIUM CHLORIDE 10 ML SYRINGE IV SCH (23:16)
[2018-09-01] MEDS: INSULIN LISPRO 1 UNIT/0.01 ML UNIT SQ SCH (23:16)
[2018-09-01] MEDS ORDERED: INSULIN LISPRO 1 UNIT/0.01 ML UNIT SQ ONE (23:18)
[2018-09-02] MEDS ORDERED: ACETAMINOPHEN 325 MG TABLET PO ONE (00:24)
[2018-09-02 01:03] LABS: Sodium 127 mmol/L (133-145)
[2018-09-02] MEDS: 0.9 % SODIUM CHLORIDE 10 ML SYRINGE IV SCH ×4 (05:46→20:51)
[2018-09-02 06:45] LABS: Hemoglobin 12.3 g/dL (13.5-16.5); Mean Corpuscular HGB Conc 32.5 g/dL (31.0-36.0); Mean Platelet Volume 8.3 fL (7.4-10.4); Platelet Count 204 K/mcL (140-440); RBC 4.22 M/mcL (4.50-5.90); Red Cell Distribution Width 13.9 % (11.5-14.5); WBC 9.5 K/mcL (4.5-11.0)
[2018-09-02 07:11] LABS: ALT/SGPT 11 U/l (0-40); AST/SGOT 11 U/l (0-37); Albumin 3.8 gm/dL (3.2-5.2); Albumin/Globulin Ratio 1.2 (1.0-2.3); Alkaline Phosphatase 63 U/L (39-117); Bilirubin,Direct < 0.2 mg/dL (0.0-0.3); Bilirubin,Total 0.4 mg/dL (0.0-1.0); Blood Urea Nitrogen 28 mg/dl (8-23); Calcium 9.6 mg/dl (8.6-10.4); Carbon Dioxide 29 mmol/L (22-30); Chloride 90 mmol/L (96-108); Gamma Glutamyl Transpeptidase 28 U/L (8-61); Globulin 3.2 gm/dL (2.2-3.7); Glomerular Filtration Rate 59; Glucose 184 mg/dL (70-105); Lactate Dehydrogenase 178 U/L (94-250); Magnesium 1.9 mg/dL (1.6-2.5); Phosphorous 2.8 mg/dL (2.7-4.5); Potassium 5.1 mmol/L (3.3-5.1); Sodium 130 mmol/L (133-145); Triglycerides 203 mg/dl (<150)
[2018-09-02] MEDS: INSULIN LISPRO 1 UNIT/0.01 ML UNIT SQ SCH ×4 (07:48→20:52)
[2018-09-02 08:17] LABS: Eosinophils % (Manual) 1 % (0-7); Lymphocytes % 8 % (15-49); Monocytes % (Manual) 6 % (1-12); Platelet Estimate NORMAL (NORMAL); Polychromasia 1+ (NONE SEEN); RBC Morphology ABNORM (NORMAL); Segmented Neutrophils % 85 % (38-78)
[2018-09-02 09:21] LABS: Sodium 127 mmol/L (133-145)
[2018-09-02] MEDS: FUROSEMIDE 40 MG/4 ML VIAL IV SCH ×2 (09:21→16:43)
[2018-09-02] MEDS: HEPARIN 5,000 UNIT/ML VIAL SQ SCH ×2 (09:21→20:52)
[2018-09-02] MEDS: DOCUSATE SODIUM 100 MG CAPSULE PO SCH ×2 (09:22→22:13)
[2018-09-02] MEDS: MULTIVIT,THER IRON,CA,FA & MIN 1 TABLET PO SCH (09:22)
[2018-09-02] MEDS: THIAMINE 100 MG TABLET PO SCH (09:22)
[2018-09-02] MEDS: CYANOCOBALAMIN (VITAMIN B-12) 500 MCG TABLET PO SCH ×2 (09:22→22:38)
[2018-09-02] MEDS: AMOXICILLIN/POTASSIUM CLAV 875 MG TABLET PO SCH ×2 (09:43→16:43)
--- NOTE | 2018-09-02 11:37 | Internal Med Progress Note ---
Medical - PN: Subj Patient information: Note initiated : 09/02/18 at 11:33 am Service Date, if different from initiated Date: [] Patient: Unique Guallpa 73 y/o M admitted on 09/01/18 for headache, lethargy. Chief Complaint: [] Interval history: Mr. Guallpa is a 73 year old M morbidly obese with history of chronic disease/DM type 2/hypertension who presents to [facility] ER along with his with progressive decline in overall health over the last one week which resulted in patient being nonfunctional, laying in bed. As per patient has been able to perform activities of daily living and has not been in his normal self. Patient has been fatigued and lethargic with poor appetite. He also complains of low-grade fever. However denies shortness of breath, cough, diarrhea. He was recently diagnosed with sinusitis/influenza and has been on antibiotics( Augmentin). Last 24 hours patient has been barely arousable, unable to eat or get out of bed. Patient normally is independent with ADLs and this is a dramatic change from his baseline. Initial workup in the ER consistent with change in mental status with a tox screen positive for opioids however normal biochemical profile except for sodium 127. No clear evidence of infection. Mild CHF on chest imaging. There was no response to Romazicon. Hospitalist service was consulted for admission in light of above At the time evaluation patient is able to answer some of the questions but confused to time and place. He denies chest pain headache. Endorses to weakness and loss of appetite. 09/02-patient doing a lot better. Able to eat breakfast. Lucid and alert and oriented. at bedside. Intermittently confused but much improved since admission. Continue to hold opioids/gabapentin. Consider MRI brain if patient fails to improve over the next 24 hours. Patient requests sedation for MRI as he is claustrophobic. No telemetry events. No other concerns expressed for nursing staff - Constitutional Vitals: Vital Signs Temp Pulse Resp BP Pulse Ox 98.4 F 70 20 184/73 98 09/02/18 11:00 09/02/18 03:00 09/02/18 11:00 09/02/18 07:00 09/02/18 11:00 Period Temp Pulse Resp BP Sys/Leonard Pulse Ox Last 24 Hr 98.2 F-101.6 F 70-89 16-24 141-184/65-82 89-98 Intake and Output 09/01/18 09/02/18 09/02/18 21:59 05:59 13:59 Intake Total 340 Output Total 700 550 650 Balance -700 -210 -650 Weight 280 lb 285 lb 11.2 oz Intake & Output: Intake & Output 09/01/18 09/02/18 09/02/18 21:59 05:59 13:59 Intake Total 340 Output Total 700 550 650 Balance -700 -210 -650 Weight 280 lb 285 lb 11.2 oz Intake: Oral 340 Output: Void Amount 700 550 650 # of times incontinent of urine 0 Other: Urine Appearance Clear Clear Clear Urine Color Pale Bright Yellow Bright Yellow Urine Odor Normal # Voids 0 General appearance: no acute distress Exam: Alert oriented Nonlabored breathing Morbidly obese no Lymphedema No telemetry events Medical - PN: Obj Da - Labs CBC & Chem 7: 09/02/18 03:51 09/02/18 07:55 Labs: Abnormal Lab Results 09/02/18 09/02/18 09/02/18 07:55 03:51 03:51 RBC 4.22 L Hgb 12.3 L Hct 38.0 L POC Hct Seg Neutrophils % 85 H Lymphocytes % 8 L RBC Morphology Abnorm A Polychromasia 1+ A ABG Methemoglobin VBG pO2 VBG HCO3 VBG Total CO2 VBG O2 Saturation VBG Base Excess Carboxyhemoglobin Total Hemoglobin POC Sodium Sodium 127 L 130 L POC Potassium POC Chloride Chloride 90 L POC BUN BUN 28 H POC Creatinine Glucose 184 H POC Glucose Triglycerides 203 H Ur Oxycodone Screen 09/02/18 09/01/18 09/01/18 00:20 20:30 18:25 RBC Hgb Hct POC Hct Seg Neutrophils % Lymphocytes % RBC Morphology Polychromasia ABG Methemoglobin 0.3 L VBG pO2 64 H VBG HCO3 28.9 H VBG Total CO2 30.2 H VBG O2 Saturation 84.8 H VBG Base Excess 3.8 H Carboxyhemoglobin 4.0 H Total Hemoglobin 12.4 L POC Sodium Sodium 127 L POC Potassium POC Chloride Chloride POC BUN BUN POC Creatinine Glucose POC Glucose Triglycerides Ur Oxycodone Screen Suspect positive A 09/01/18 09/01/18 17:25 17:25 RBC 4.22 L Hgb 12.5 L Hct 37.5 L POC Hct 37.0 L Seg Neutrophils % Lymphocytes % RBC Morphology Polychromasia ABG Methemoglobin VBG pO2 VBG HCO3 VBG Total CO2 VBG O2 Saturation VBG Base Excess Carboxyhemoglobin Total Hemoglobin POC Sodium 127 L Sodium 128 L POC Potassium 5.3 H POC Chloride 91 L Chloride 91 L POC BUN 29 H BUN 31 H POC Creatinine 1.4 H Glucose 230 H POC Glucose 228 H Triglycerides Ur Oxycodone Screen Meds: Medications Acetaminophen (Tylenol) 650 mg PO Q4-6HP PRN PRN Reason: PAIN/FEVER > 101 Amoxicillin/Clavulanate Potassium (Augmentin) 875 mg PO BIDCC [facility] Stop: 09/05/18 08:01 Last Admin: 09/02/18 09:43 Dose: 875 mg Documented by: Cyanocobalamin (Vitamin B-12) 1,000 mcg PO BID [facility] Stop: 09/06/18 21:01 Last Admin: 09/02/18 09:22 Dose: 1,000 mcg Documented by: Dextrose (Dextrose 50%) 0 ml IV UD PRN PRN Reason: Hypoglycemia Diagnostic Test (Pha) (Accu-Chek) 1 each FS [facility] Last Admin: 09/02/18 07:43 Dose: 1 each Documented by: Docusate Sodium (Colace) 100 mg PO BID [facility] Last Admin: 09/02/18 09:22 Dose: 100 mg Documented by: Furosemide (Lasix) 40 mg IV BIDD [facility] Last Admin: 09/02/18 09:21 Dose: 40 mg Documented by: Glucose (Insta-Glucose) 15 gm PO PRN PRN PRN Reason: Hypoglycemia Heparin Sodium (Porcine) (Heparin) 5,000 unit SQ Q12 [facility] Last Admin: 09/02/18 09:21 Dose: 5,000 unit Documented by: Potassium Chloride 40 meq/ (Dextrose) 520 mls @ 130 mls/hr IV UD PRN PRN Reason: K+ = or < 3.5 Magnesium Sulfate (Magnesium Sulfate) 2 gm in 50 mls @ 50 mls/hr IV UD PRN PRN Reason: MG = or < 1.7 Acetaminophen (Ofirmev) 1,000 mg in 100 mls @ 200 mls/hr IV Q6HP PRN PRN Reason: PAIN/FEVER > 101 Insulin Human Lispro (Humalog) 0 unit SQ [facility] Protocol Last Admin: 09/02/18 07:48 Dose: 3 units Documented by: Iron Carb/Multivit/Page/Folic Acid (Multivitamin W/Minerals) 1 tab PO DAILY [facility] Last Admin: 09/02/18 09:22 Dose: 1 tab Documented by: Ondansetron HCl (Zofran) 4 mg IV Q4-6HP PRN PRN Reason: Nausea And Vomiting Senna/Docusate Sodium (Senna Plus Tablet) 1 tab PO [facility] Sodium Chloride (Saline Flush) 10 ml IV Q8 [facility] Last Admin: 09/02/18 05:46 Dose: 10 ml Documented by: Thiamine HCl (Vitamin B1) 100 mg PO DAILY [facility] Last Admin: 09/02/18 09:22 Dose: 100 mg Documented by: - ABG Interpretation ABG results: 09/01/18 18:25 ABG Methemoglobin 0.3 L VBG pH 7.42 VBG pCO2 45.2 VBG pO2 64 H VBG HCO3 28.9 H VBG Total CO2 30.2 H VBG O2 Saturation 84.8 H VBG Base Excess 3.8 H Medical - PN: A/P - Time Spent With Patient Total time spent is greater than 50% in coordination of care (as documented) at patient's floor/unit and/or counseling patient: 25 - 35 minutes (1) Change in mental status Status: Acute Assessment and plan: * Acute change in mental status-unclear etiology. Clinically improved. Highly Suspect polypharmacy. * Recent influenza/sinusitis- continue Augmentin * Exacerbation of CHF- recent echo from August 18 - 70%/moderate pericardial effusion, continue diuresis * Pericardial effusion on echo. Schedule outpatient cardiology follow-up. * Severe deconditioning/weakness-PT OT/nutrition support * DM type cc diet/home meds * Hypertension-restart amlodipine/lisinopril * BPH continue tamsulosin * Neuropathy -hold gabapentin until mental status improved * CAD-continue aspirin/statin/SUHAS inhibitor * Hyperlipidemia-on statin * History of gout on allopurinol * Prophylaxis heparin * Full code Plan * Continue monitoring * Pre-existing medical condition management as above * Possible discharge in 24 hours if clinically improved * MRI brain if mentation remains altered * Outpatient cardiology follow-up for pericardial effusion * PT OT/nutrition support Current Visit: Yes
[2018-09-02] MEDS ORDERED: traZODone HCL 50 MG TABLET PO PRN (17:19)
[2018-09-02] MEDS ORDERED: MELATONIN 3 MG TABLET PO PRN (17:20)
[2018-09-02] MEDS ORDERED: SENNOSIDES/DOCUSATE SODIUM 1 TAB TABLET PO SCH (21:00)
[2018-09-02] MEDS: MUPIROCIN OINT 2% 22GM NARES SCH (22:12)
[2018-09-03] MEDS: ACETAMINOPHEN 325 MG TABLET PO PRN ×2 (05:37→12:05)
[2018-09-03] MEDS: 0.9 % SODIUM CHLORIDE 10 ML SYRINGE IV SCH ×3 (05:51→21:45)
[2018-09-03 05:52] LABS: Hematocrit 39.6 % (41.0-55.0); Mean Cell Volume 89.5 fL (80.0-100.0); Mean Corpuscular HGB Conc 32.7 g/dL (31.0-36.0); Mean Platelet Volume 8.1 fL (7.4-10.4); Platelet Count 251 K/mcL (140-440); RBC 4.42 M/mcL (4.50-5.90); Red Cell Distribution Width 14.1 % (11.5-14.5); WBC 9.4 K/mcL (4.5-11.0)
[2018-09-03 06:12] LABS: ALT/SGPT 12 U/l (0-40); AST/SGOT 12 U/l (0-37); Albumin 3.8 gm/dL (3.2-5.2); Albumin/Globulin Ratio 1.2 (1.0-2.3); Alkaline Phosphatase 66 U/L (39-117); Bilirubin,Direct < 0.2 mg/dL (0.0-0.3); Bilirubin,Total 0.3 mg/dL (0.0-1.0); Blood Urea Nitrogen 28 mg/dl (8-23); Calcium 9.7 mg/dl (8.6-10.4); Carbon Dioxide 30 mmol/L (22-30); Chloride 86 mmol/L (96-108); Gamma Glutamyl Transpeptidase 31 U/L (8-61); Globulin 3.2 gm/dL (2.2-3.7); Glomerular Filtration Rate 59; Glucose 187 mg/dL (70-105); Lactate Dehydrogenase 180 U/L (94-250); Magnesium 1.9 mg/dL (1.6-2.5); Potassium 4.3 mmol/L (3.3-5.1); Sodium 128 mmol/L (133-145); Triglycerides 218 mg/dl (<150); Uric Acid 6.2 mg/dL (2.5-8.0)
[2018-09-03 06:46] LABS: Band Neutrophils % 2 % (0-10); Lymphocytes % 16 % (15-49); Monocytes % (Manual) 8 % (1-12); Platelet Estimate NORMAL (NORMAL); RBC Morphology NORMAL (NORMAL); Segmented Neutrophils % 74 % (38-78)
[2018-09-03] MEDS ORDERED: POLYETHYLENE GLYCOL 3350 17 GM PACKET PO PRN ×2 (08:25→15:33)
[2018-09-03] MEDS: INSULIN LISPRO 1 UNIT/0.01 ML UNIT SQ SCH ×4 (09:16→20:38)
[2018-09-03] MEDS: THIAMINE 100 MG TABLET PO SCH (09:17)
[2018-09-03] MEDS: CYANOCOBALAMIN (VITAMIN B-12) 500 MCG TABLET PO SCH ×2 (09:17→20:40)
[2018-09-03] MEDS: AMOXICILLIN/POTASSIUM CLAV 875 MG TABLET PO SCH ×2 (09:17→17:23)
[2018-09-03] MEDS: HEPARIN 5,000 UNIT/ML VIAL SQ SCH ×2 (09:18→20:39)
[2018-09-03] MEDS: DOCUSATE SODIUM 100 MG CAPSULE PO SCH ×2 (09:18→20:39)
[2018-09-03] MEDS: MUPIROCIN OINT 2% 22GM NARES SCH ×2 (09:18→20:38)
[2018-09-03] MEDS: FUROSEMIDE 40 MG/4 ML VIAL IV SCH ×2 (09:18→16:05)
[2018-09-03] MEDS: MULTIVIT,THER IRON,CA,FA & MIN 1 TABLET PO SCH (09:18)
--- NOTE | 2018-09-03 09:19 | XRay Report ---
CLINICAL INFORMATION: Follow up CHF COMPARISON: 09/01/2018 FINDINGS: Marked cardiomegaly is unchanged. Mediastinum is unremarkable. The pulmonary vessels have returned to normal in caliber. The interstitial edema has cleared. No infiltrates or effusions IMPRESSION: Interval resolution of acute CHF Interpreted and Authenticated by: Elmer Roach 09/03/18
[2018-09-03] MEDS ORDERED: ALBUTEROL SULFATE 1 PUFF INHALER INH PRN ×2 (10:10→15:33)
[2018-09-03] MEDS ORDERED: INSULIN GLARGINE, HUMAN 1 UNIT/0.01 ML SQ SCH ×2 (10:15→21:00)
--- NOTE | 2018-09-03 10:15 | Internal Med Progress Note ---
Medical - PN: Subj Patient information: Note initiated : 09/03/18 at 10:06 am Service Date, if different from initiated Date: [] Patient: Unique Guallpa 73 y/o M admitted on 09/01/18 for headache, lethargy. Chief Complaint: [] Interval history: Mr. Guallpa is a 73 year old M morbidly obese with history of chronic disease/DM type 2/hypertension who presents to [facility] ER along with his with progressive decline in overall health over the last one week which resulted in patient being nonfunctional, laying in bed. As per patient has been able to perform activities of daily living and has not been in his normal self. Patient has been fatigued and lethargic with poor appetite. He also complains of low-grade fever. However denies shortness of breath, cough, diarrhea. He was recently diagnosed with sinusitis/influenza and has been on antibiotics( Augmentin). Last 24 hours patient has been barely arousable, unable to eat or get out of bed. Patient normally is independent with ADLs and this is a dramatic change from his baseline. Initial workup in the ER consistent with change in mental status with a tox screen positive for opioids however normal biochemical profile except for sodium 127. No clear evidence of infection. Mild CHF on chest imaging. There was no response to [employer]. Hospitalist service was consulted for admission in light of above At the time evaluation patient is able to answer some of the questions but confused to time and place. He denies chest pain headache. Endorses to weakness and loss of appetite. 09/02-patient doing a lot better. Able to eat breakfast. Lucid and alert and oriented. at bedside. Intermittently confused but much improved since admission. Continue to hold opioids/gabapentin. Consider MRI brain if patient fails to improve over the next 24 hours. Patient requests sedation for MRI as he is claustrophobic. No telemetry events. No other concerns expressed for nursing staff 09/03- patient clinically better but intermittently confused. at bedside. Eating breakfast himself. No overnight fever or chills. Plan MRI today however patient will need sedation due to claustrophobia. Check ABG/ammonia. Stable labs, sodium 128. No fever chills or telemetry events. - Constitutional Vitals: Vital Signs Temp Pulse Resp BP Pulse Ox 99.4 F H 76 24 H 165/79 94 05/25/19 07:36 09/02/18 23:49 09/03/18 07:36 09/03/18 07:36 09/03/18 07:36 Period Temp Pulse Resp BP Sys/Leonard Pulse Ox Last 24 Hr 98.1 F-100.7 F 73-78 16-24 138-165/65-88 91-98 Intake and Output 09/02/18 09/03/18 09/03/18 21:59 05:59 13:59 Intake Total 460 Output Total 1100 550 Balance -1100 460 -550 Weight 279 lb 8 oz Intake & Output: Intake & Output 09/02/18 09/03/18 09/03/18 21:59 05:59 13:59 Intake Total 460 Output Total 1100 550 Balance -1100 460 -550 Weight 279 lb 8 oz Intake: IV 100 Oral 360 Output: Void Amount 1100 550 Other: Meal Dinner Percent of Meal Consumed 25% Urine Appearance Clear Urine Color Bright Yellow Urine Odor Normal General appearance: no acute distress Exam: Alert and responding Sitting on chair No telemetry events No anxiety Pendulous abdomen Minimal lymphedema Medical - PN: Obj Da - Labs CBC & Chem 7: 09/03/18 03:35 09/03/18 03:35 Labs: Abnormal Lab Results 09/03/18 09/03/18 09/02/18 03:35 03:35 07:55 RBC 4.42 L Hgb 13.0 L Hct 39.6 L POC Hct Seg Neutrophils % Lymphocytes % RBC Morphology Polychromasia ABG Methemoglobin VBG pO2 VBG HCO3 VBG Total CO2 VBG O2 Saturation VBG Base Excess Carboxyhemoglobin Total Hemoglobin POC Sodium Sodium 128 L 127 L POC Potassium POC Chloride Chloride 86 L POC BUN BUN 28 H POC Creatinine Glucose 187 H POC Glucose Triglycerides 218 H Ur Oxycodone Screen 09/02/18 09/02/18 09/02/18 03:51 03:51 00:20 RBC 4.22 L Hgb 12.3 L Hct 38.0 L POC Hct Seg Neutrophils % 85 H Lymphocytes % 8 L RBC Morphology Abnorm A Polychromasia 1+ A ABG Methemoglobin VBG pO2 VBG HCO3 VBG Total CO2 VBG O2 Saturation VBG Base Excess Carboxyhemoglobin Total Hemoglobin POC Sodium Sodium 130 L 127 L POC Potassium POC Chloride Chloride 90 L POC BUN BUN 28 H POC Creatinine Glucose 184 H POC Glucose Triglycerides 203 H Ur Oxycodone Screen 09/01/18 09/01/18 09/01/18 20:30 18:25 17:25 RBC Hgb Hct POC Hct 37.0 L Seg Neutrophils % Lymphocytes % RBC Morphology Polychromasia ABG Methemoglobin 0.3 L VBG pO2 64 H VBG HCO3 28.9 H VBG Total CO2 30.2 H VBG O2 Saturation 84.8 H VBG Base Excess 3.8 H Carboxyhemoglobin 4.0 H Total Hemoglobin 12.4 L POC Sodium 127 L Sodium 128 L POC Potassium 5.3 H POC Chloride 91 L Chloride 91 L POC BUN 29 H BUN 31 H POC Creatinine 1.4 H Glucose 230 H POC Glucose 228 H Triglycerides Ur Oxycodone Screen Suspect positive A 09/01/18 17:25 RBC 4.22 L Hgb 12.5 L Hct 37.5 L POC Hct Seg Neutrophils % Lymphocytes % RBC Morphology Polychromasia ABG Methemoglobin VBG pO2 VBG HCO3 VBG Total CO2 VBG O2 Saturation VBG Base Excess Carboxyhemoglobin Total Hemoglobin POC Sodium Sodium POC Potassium POC Chloride Chloride POC BUN BUN POC Creatinine Glucose POC Glucose Triglycerides Ur Oxycodone Screen Meds: Medications Acetaminophen (Tylenol) 650 mg PO Q4-6HP PRN PRN Reason: PAIN/FEVER > 101 Last Admin: 09/03/18 05:37 Dose: 650 mg Documented by: Amoxicillin/Clavulanate [facility] ([facility]) [facility] Stop: 09/05/18 08:01 Last Admin: 09/03/18 09:17 Dose: 875 mg Documented by: Cyanocobalamin (Vitamin B-12) 1,000 mcg PO BID [facility] Stop: 09/06/18 21:01 Last Admin: 09/03/18 09:17 Dose: 1,000 mcg Documented by: Dextrose (Dextrose 50%) 0 ml IV UD PRN PRN Reason: Hypoglycemia Diagnostic Test (Pha) (Accu-Chek) 1 each FS ACHS [facility] Last Admin: 09/03/18 08:40 Dose: 1 each Documented by: Docusate Sodium (Colace) 100 mg PO BID [facility] Last Admin: 09/03/18 09:18 Dose: 100 mg Documented by: Furosemide (Lasix) 40 mg IV BIDD [facility] Last Admin: 09/03/18 09:18 Dose: 40 mg Documented by: Glucose (Insta-Glucose) 15 gm PO PRN PRN PRN Reason: Hypoglycemia Heparin Sodium (Porcine) (Heparin) 5,000 unit SQ Q12 [facility] Last Admin: 09/03/18 09:18 Dose: 5,000 unit Documented by: Potassium Chloride 40 meq/ (Dextrose) 520 mls @ 130 mls/hr IV UD PRN PRN Reason: K+ = or < 3.5 Magnesium Sulfate (Magnesium Sulfate) 2 gm in 50 mls @ 50 mls/hr IV UD PRN PRN Reason: MG = or < 1.7 Acetaminophen (Ofirmev) 1,000 mg in 100 mls @ 200 mls/hr IV Q6HP PRN PRN Reason: PAIN/FEVER > 101 Last Infusion: 09/03/18 00:47 Dose: Infused Documented by: Insulin Human Lispro (Humalog) 0 unit SQ ACHS [facility]; Protocol Last Admin: 09/03/18 09:16 Dose: 3 units Documented by: Iron Carb/Multivit/[place]/Folic Acid (Multivitamin W/Minerals) 1 tab PO DAILY [facility] Last Admin: 09/03/18 09:18 Dose: 1 tab Documented by: Melatonin (Melatonin 3mg Tablet) 6 mg PO HSP PRN PRN Reason: Insomnia Mupirocin (Bactroban Oint 2%) 1 dose NARES BID [facility] Last Admin: 09/03/18 09:18 Dose: 1 dose Documented by: Ondansetron HCl (Zofran) 4 mg IV Q4-6HP PRN PRN Reason: Nausea And Vomiting Polyethylene Glycol (Miralax) 17 gm PO DAILYP PRN PRN Reason: Constipation Last Admin: 09/03/18 09:18 Dose: 17 gm Documented by: Senna/Docusate Sodium (Senna Plus Tablet) 1 tab PO HS [facility] Last Admin: 09/02/18 22:13 Dose: Not Given Documented by: Sodium Chloride (Saline Flush) 10 ml IV Q8 [facility] Last Admin: 09/03/18 05:51 Dose: 10 ml Documented by: Thiamine HCl (Vitamin B1) 100 mg PO DAILY [facility] Last Admin: 09/03/18 09:17 Dose: 100 mg Documented by: - ABG Interpretation ABG results: 09/01/18 18:25 ABG Methemoglobin 0.3 L VBG pH 7.42 VBG pCO2 45.2 VBG pO2 64 H VBG HCO3 28.9 H VBG Total CO2 30.2 H VBG O2 Saturation 84.8 H VBG Base Excess 3.8 H Medical - PN: A/P - Time Spent With Patient Total time spent is greater than 50% in coordination of care (as documented) at patient's floor/unit and/or counseling patient: 25 - 35 minutes (1) Change in mental status Status: Acute Assessment and plan: * Acute change in mental status -etiology remains unclear at this time. Await ammonia/ABG/MRI brain. Gradual clinical improvement noted. Suspect polypharmacy, hold zolpidem/gabapentin/diphenhydramine * Exacerbation of diastolic CHF- recent echo from August 18 - 70%/moderate pericardial effusion, diuresing well with over 3000 cc net negative fluid balance. Restart SUHAS inhibitor/spironolactone Continue spironolactone * Recent influenza/sinusitis- continue Augmentin for additional 3 days * Pericardial effusion on echo. Schedule outpatient cardiology follow-up. * Severe deconditioning/weakness-PT OT/nutrition support * DM type -cc diet/basal insulin/metformin * Hypertension-- amlodipine/lisinopril * BPH continue tamsulosin * Neuropathy -hold gabapentin until mental status improved * CAD-continue aspirin/statin/SUHAS inhibitor * Hyperlipidemia-on statin * History of gout on allopurinol * Prophylaxis heparin * Full code Plan * ABG/ammonia * MRI brain today * Outpatient cardiology follow-up for pericardial effusion * PT OT/nutrition support * Pre-existing medical condition management as above Current Visit: Yes
[2018-09-03 11:03] LABS: ABG Base Excess 2.1 (-2.0-2.0); ABG HCO3 26.1 mmol/L (22.0-26.0); ABG PCO2 38.9 mmHg (35.0-45.0); ABG PH 7.45 U (7.35-7.45); ABG PO2 67 mmHg (80-100); ABG TCO2 27.3 mmol/L (23.0-27.0)
[2018-09-03] MEDS ORDERED: MAGNESIUM SULFATE 2 GM/50 ML BAG IV PRN (15:33)
[2018-09-03] MEDS ORDERED: DEXTROSE 50% 50 ML VIAL IV PRN (15:33)
[2018-09-03] MEDS ORDERED: POTASSIUM CHLORIDE 40 MEQ in DEXTROSE 5% IN WATER 500 ML IV PRN (15:33)
[2018-09-03] MEDS ORDERED: DEXTROSE 31 GM ORAL.SUSP PO PRN (15:33)
[2018-09-03] MEDS ORDERED: MELATONIN 3 MG TABLET PO PRN (15:33)
[2018-09-03] MEDS ORDERED: ONDANSETRON 4 MG/2 ML VIAL IV PRN (15:33)
[2018-09-03] MEDS ORDERED: ACETAMINOPHEN 325 MG TABLET PO PRN (15:33)
[2018-09-03] MEDS: GABAPENTIN 300 MG CAPSULE PO SCH ×2 (15:49→20:39)
[2018-09-03] MEDS: FERROUS SULFATE 325 MG TABLET PO SCH (17:23)
[2018-09-03] MEDS: metFORMIN 850 MG TABLET PO SCH (17:23)
[2018-09-03] MEDS ORDERED: metFORMIN 850 MG TABLET PO SCH (17:30)
[2018-09-03] MEDS ORDERED: FERROUS SULFATE 325 MG TABLET PO SCH (17:30)
[2018-09-03] MEDS: INSULIN GLARGINE, HUMAN 1 UNIT/0.01 ML SQ SCH (20:38)
[2018-09-03] MEDS: LISINOPRIL 10 MG TABLET PO SCH (20:39)
[2018-09-03] MEDS: SENNOSIDES/DOCUSATE SODIUM 1 TAB TABLET PO SCH (20:39)
[2018-09-03] MEDS: SPIRONOLACTONE 25 MG TABLET PO SCH (20:39)
[2018-09-03] MEDS: ATORVASTATIN 20 MG TABLET PO SCH (20:46)
[2018-09-03] MEDS ORDERED: ATORVASTATIN 20 MG TABLET PO SCH (21:00)
[2018-09-03] MEDS ORDERED: LISINOPRIL 10 MG TABLET PO SCH (21:00)
[2018-09-03] MEDS ORDERED: SPIRONOLACTONE 25 MG TABLET PO SCH (21:00)
[2018-09-03] MEDS: ACETAMINOPHEN 1,000 MG/100 ML BOTTLE IV PRN (22:24)
[2018-09-04 05:27] LABS: Hematocrit 42.8 % (41.0-55.0); Hemoglobin 13.8 g/dL (13.5-16.5); Mean Cell Volume 90.5 fL (80.0-100.0); Mean Corpuscular HGB Conc 32.2 g/dL (31.0-36.0); Mean Platelet Volume 8.4 fL (7.4-10.4); Platelet Count 254 K/mcL (140-440); RBC 4.73 M/mcL (4.50-5.90); Red Cell Distribution Width 14.6 % (11.5-14.5); WBC 10.1 K/mcL (4.5-11.0)
[2018-09-04] MEDS: 0.9 % SODIUM CHLORIDE 10 ML SYRINGE IV SCH ×3 (05:54→21:52)
[2018-09-04 06:02] LABS: ALT/SGPT 14 U/l (0-40); AST/SGOT 13 U/l (0-37); Albumin 3.9 gm/dL (3.2-5.2); Albumin/Globulin Ratio 1.2 (1.0-2.3); Alkaline Phosphatase 71 U/L (39-117); Bilirubin,Direct < 0.2 mg/dL (0.0-0.3); Bilirubin,Total 0.4 mg/dL (0.0-1.0); Blood Urea Nitrogen 31 mg/dl (8-23); Calcium 9.6 mg/dl (8.6-10.4); Carbon Dioxide 31 mmol/L (22-30); Chloride 84 mmol/L (96-108); Gamma Glutamyl Transpeptidase 34 U/L (8-61); Globulin 3.3 gm/dL (2.2-3.7); Glomerular Filtration Rate 53; Glucose 183 mg/dL (70-105); Lactate Dehydrogenase 157 U/L (94-250); Phosphorous 3.5 mg/dL (2.7-4.5); Potassium 3.9 mmol/L (3.3-5.1); Sodium 128 mmol/L (133-145); Triglycerides 259 mg/dl (<150)
[2018-09-04 06:41] LABS: Band Neutrophils % 1 % (0-10); Eosinophils % (Manual) 1 % (0-7); Lymphocytes % 13 % (15-49); Monocytes % (Manual) 6 % (1-12); Platelet Estimate NORMAL (NORMAL); RBC Morphology NORMAL (NORMAL); Segmented Neutrophils % 79 % (38-78)
[2018-09-04 08:07] LABS: ABG Base Excess 6.3 (-2.0-2.0); ABG HCO3 30.3 mmol/L (22.0-26.0); ABG Methemoglobin 0.3 % (0.4-1.5); ABG Oxygen Saturation 81.1 % (94.0-97.0); ABG PCO2 41.1 mmHg (35.0-45.0); ABG PH 7.49 U (7.35-7.45); ABG PO2 46 mmHg (80-100); ABG TCO2 31.5 mmol/L (23.0-27.0); Total Hemoglobin 13.9 gm/dL (13.5-16.5)
[2018-09-04] MEDS ORDERED: VANCOMYCIN PER PHARMACY IV SCH (08:13)
--- NOTE | 2018-09-04 08:40 | Cat Scan Report ---
CLINICAL INFORMATION: Decreased mental status COMPARISON: 08/24/2018 TECHNIQUE: 2.5 mm helical slices were obtained in the skull base to vertex. Following reconstruction, axial reformatted images were reviewed at bone and parenchymal windows. The exam was performed using radiation dose optimization techniques including, but not limited to, automated exposure control, adjustment of the mA and/or kV according to patient size and use of iterative reconstruction technique. FINDINGS: The ventricles, sulci, fissures, and cisterns are normal in size and configuration. No extra-axial fluid collections are identified. The cerebrum, brainstem and cerebellum are unremarkable. There is no evidence of hemorrhage, mass effect, or edema. Bone windows show no osseous abnormality. IMPRESSION: No intracerebral abnormality. Bilateral maxillary and ethmoid sinusitis have improved from the CT 11 days ago. Opacification of a single posterior right ethmoid air cell remains, however, there is now only minimal mucosal thickening within the remainder of the ethmoid air cells. Small air-fluid level in the right maxillary sinus has decreased and minimal scattered mucosal thickening about both maxillary sinuses has also decreased. Interpreted and Authenticated by: Elmer Roach 09/04/18
[2018-09-04] MEDS ORDERED: INSULIN GLARGINE, HUMAN 1 UNIT/0.01 ML SQ SCH (09:00)
[2018-09-04] MEDS ORDERED: cloNIDine HCL 0.1 MG TABLET PO SCH (09:00)
[2018-09-04] MEDS ORDERED: FENOFIBRATE 43 MG CAPSULE PO SCH (09:00)
[2018-09-04] MEDS ORDERED: amLODIPine 10 MG TABLET PO SCH (09:00)
[2018-09-04] MEDS ORDERED: ALLOPURINOL 300 MG TABLET PO SCH (09:00)
[2018-09-04] MEDS ORDERED: ALFUZOSIN HCL 10 MG PO SCH (09:00)
[2018-09-04] MEDS ORDERED: TAMSULOSIN 0.4 MG CAPSULE PO SCH (09:00)
[2018-09-04] MEDS ORDERED: cefTRIAXone 2 GM in DEXTROSE 5% IN WATER 50 ML IV SCH (09:00)
[2018-09-04] MEDS ORDERED: ASPIRIN 325 MG ENTERIC COATED TABLET PO SCH (09:00)
[2018-09-04] MEDS ORDERED: MAGNESIUM OXIDE 400 MG TABLET PO SCH (09:00)
[2018-09-04] MEDS: FUROSEMIDE 40 MG/4 ML VIAL IV SCH ×2 (09:19→15:39)
[2018-09-04] MEDS: AMOXICILLIN/POTASSIUM CLAV 875 MG TABLET PO SCH ×2 (09:20→15:40)
[2018-09-04] MEDS: SPIRONOLACTONE 25 MG TABLET PO SCH ×2 (09:20→23:42)
[2018-09-04] MEDS: metFORMIN 850 MG TABLET PO SCH ×2 (09:20→15:39)
[2018-09-04] MEDS: FENOFIBRATE 43 MG CAPSULE PO SCH (09:20)
[2018-09-04] MEDS: FERROUS SULFATE 325 MG TABLET PO SCH ×2 (09:20→15:39)
[2018-09-04] MEDS: INSULIN LISPRO 1 UNIT/0.01 ML UNIT SQ SCH ×4 (09:20→21:00)
[2018-09-04] MEDS: DOCUSATE SODIUM 100 MG CAPSULE PO SCH ×2 (09:20→23:43)
[2018-09-04] MEDS: ACYCLOVIR SODIUM 1,000 MG in 0.9 % SODIUM CHLORIDE 250 ML IV SCH ×2 (09:36→15:39)
[2018-09-04] MEDS: amLODIPine 10 MG TABLET PO SCH ×2 (09:37→16:02)
[2018-09-04] MEDS: THIAMINE 100 MG TABLET PO SCH (09:37)
[2018-09-04] MEDS: LISINOPRIL 10 MG TABLET PO SCH ×2 (09:37→16:02)
[2018-09-04] MEDS: CYANOCOBALAMIN (VITAMIN B-12) 500 MCG TABLET PO SCH ×2 (09:37→23:44)
[2018-09-04] MEDS: ALLOPURINOL 300 MG TABLET PO SCH (09:37)
[2018-09-04] MEDS: ALFUZOSIN HCL 10 MG PO SCH (09:37)
[2018-09-04] MEDS: MAGNESIUM OXIDE 400 MG TABLET PO SCH (09:38)
[2018-09-04] MEDS: ASPIRIN 325 MG ENTERIC COATED TABLET PO SCH (09:38)
[2018-09-04] MEDS: cloNIDine HCL 0.1 MG TABLET PO SCH (09:38)
[2018-09-04] MEDS: GABAPENTIN 300 MG CAPSULE PO SCH ×2 (09:38→23:43)
[2018-09-04] MEDS: TAMSULOSIN 0.4 MG CAPSULE PO SCH (09:38)
[2018-09-04] MEDS: MULTIVIT,THER IRON,CA,FA & MIN 1 TABLET PO SCH (09:38)
[2018-09-04] MEDS: INSULIN GLARGINE, HUMAN 1 UNIT/0.01 ML SQ SCH ×2 (09:39→21:30)
[2018-09-04] MEDS ORDERED: VANCOMYCIN 1,500 MG in 0.9 % SODIUM CHLORIDE 500 ML IV SCH (10:00)
[2018-09-04] MEDS ORDERED: VANCOMYCIN 2,000 MG in 0.9 % SODIUM CHLORIDE 500 ML IV ONE (10:00)
--- NOTE | 2018-09-04 10:02 | Transfer Summary ---
Transfer Discharge Sum: Prov Patient information: Note initiated : 09/04/18 at 9:53 am Service Date, if different from initiated Date: [] Patient: Unique Guallpa 73 y/o M admitted on 09/03/18 for headache, lethargy. Chief Complaint: [] Date of admission: 09/03/18 10:00 Discharge Date: 09/05/18 Primary care physician: Salazar Overton Consults: 09/01/18 Consult to Physician [CONS] Stat Comment: Consulting Provider: Tiffanie Mccoy Reason For Exam: Physician to Consult Transfer Discharge Sum: Diag - Discharge Diagnosis (1) Change in mental status Status: Acute Transfer Discharge Sum: Med - Medications Active and Home Medications: Home Medications allopurinol 300 mg tablet 300 mg PO QDAY 01/16/15 [History Confirmed 09/02/18] amlodipine 10 mg tablet 10 mg PO QDAY 01/16/15 [History Confirmed 09/02/18] aspirin 325 mg tablet 325 mg PO QDAY 01/16/15 [History Confirmed 09/02/18] atorvastatin 40 mg tablet 40 mg PO QDAY 01/16/15 [History Confirmed 09/02/18] clonidine HCl 0.2 mg tablet 0.2 mg PO QDAY tab 01/16/15 [History Confirmed 09/02/18] fenofibrate nanocrystallized 145 mg tablet 145 mg PO QDAY 01/16/15 [History Confirmed 09/02/18] furosemide 20 mg tablet 20 mg PO BID tab 01/16/15 [History Confirmed 09/02/18] metformin 850 mg tablet 850 mg PO BID 01/16/15 [History Confirmed 09/02/18] multivitamin tablet 1 tab PO QDAY 01/16/15 [History Confirmed 09/02/18] spironolactone 25 mg tablet 25 mg PO BID 01/16/15 [History Confirmed 09/02/18] oxyCODONE HCL/ACETAMINOPHEN [Percocet 7.5-325 mg Tablet] 1 tab PO Q6H PRN #30 tab 10/03/15 [Rx Confirmed 09/02/18] magnesium 200 mg tablet 400 mg PO QDAY tab 04/14/16 [History Confirmed 09/02/18] cyanocobalamin (vit B-12) 5,000 mcg sublingual tablet 5,000 mcg SUBLINGUAL QDAY 08/10/16 [History Confirmed 09/02/18] diphenhydramine 25 mg-acetaminophen 500 mg tablet 4 tab-cap PO QHS tab 08/10/16 [History Confirmed 09/02/18] glucosamine-chondroitin 2 tablet PO DAILY 08/10/16 [History Confirmed 09/02/18] lisinopril 20 mg tablet 10 mg PO BID tab 08/10/16 [History Confirmed 09/02/18] ferrous sulfate 325 mg (65 mg iron) tablet 325 mg PO BID tab 11/10/16 [History Confirmed 09/02/18] insulin glargine (U- 100) 100 unit/mL subcutaneous solution See Rx Instructions .ROUTE .COMPLEX ml 08/20/17 [History Confirmed 09/02/18] alfuzosin ER 10 mg tablet,extended release 24 hr 10 mg PO QDAY 07/19/18 [History Confirmed 09/02/18] cholecalciferol (vitamin D3) 2,000 unit capsule 2,000 unit PO QDAY 07/19/18 [History Confirmed 09/02/18] gabapentin 300 mg capsule 300 mg PO BID 07/19/18 [History Confirmed 09/01/18] omega 4-ebl-kmo-fish oil 1,000 mg (120 mg-180 mg) capsule 1 cap PO BID 07/19/18 [History Confirmed 09/01/18] sildenafil 100 mg tablet 100 mg PO ONCE PRN tab 07/19/18 [History Confirmed 09/02/18] tamsulosin 0.4 mg capsule 0.4 mg PO QDAY 07/19/18 [History Confirmed 09/02/18] zolpidem 10 mg tablet 10 mg PO QHS tab 07/19/18 [History Confirmed 09/01/18] albuterol sulfate HFA 90 mcg/actuation aerosol inhaler 2 puff INHALATION Q6H PRN #8.5 g 08/16/18 [Rx Confirmed 09/01/18] Amoxicillin 500 mg PO BID 09/01/18 [History Confirmed 09/01/18] Amoxicillin/Potassium Clav [Augmentin] 875 mg PO BID 09/01/18 [History Confirmed 09/01/18] Active Medications Acetaminophen (Tylenol) 650 mg PO Q4-6HP PRN PRN Reason: PAIN/FEVER > 101 Last Admin: 09/03/18 21:27 Dose: 650 mg Documented by: Albuterol Sulfate (Ventolin) 2 puff INH Q6HP PRN PRN Reason: cough, shortness of breath, wh Allopurinol (Zylopriim) 300 mg PO QDAY [facility] Last Admin: 09/04/18 09:37 Dose: Not Given Documented by: Amlodipine Besylate (Norvasc) 10 mg PO QDAY [facility] Last Admin: 09/04/18 09:37 Dose: Not Given Documented by: Amoxicillin/Clavulanate [facility]in) [facility] Stop: 09/05/18 08:01 Last Admin: 09/04/18 09:20 Dose: Not Given Documented by: Aspirin (Ecotrin) 325 mg PO DAILY [facility] Last Admin: 09/04/18 09:38 Dose: Not Given Documented by: Atorvastatin Calcium (Lipitor) 40 mg PO HS [facility] Last Admin: 09/03/18 20:46 Dose: 40 mg Documented by: Clonidine HCl (Catapres) 0.2 mg PO DAILY [facility] Last Admin: 09/04/18 09:38 Dose: Not Given Documented by: Cyanocobalamin (Vitamin B-12) 1,000 mcg PO BID [facility] Stop: 09/06/18 21:01 Last Admin: 09/04/18 09:37 Dose: Not Given Documented by: Dextrose (Dextrose 50%) 0 ml IV UD PRN PRN Reason: Hypoglycemia Diagnostic Test (Pha) (Accu-Chek) 1 each FS ACHS [facility] Last Admin: 09/04/18 07:40 Dose: 1 each Documented by: Docusate Sodium (Colace) 100 mg PO BID [facility] Last Admin: 09/04/18 09:20 Dose: Not Given Documented by: Fenofibrate (Antara) 129 mg PO DAILY [facility] Last Admin: 09/04/18 09:20 Dose: Not Given Documented by: Ferrous Sulfate (Ferrous Sulfate) 325 mg PO BIDCC [facility] Last Admin: 09/04/18 09:20 Dose: Not Given Documented by: Furosemide (Lasix) 40 mg IV BIDD [facility] Last Admin: 09/04/18 09:19 Dose: 40 mg Documented by: Gabapentin (Neurontin) 300 mg PO BID [facility] Last Admin: 09/04/18 09:38 Dose: Not Given Documented by: Glucose (Insta-Glucose) 15 gm PO PRN PRN PRN Reason: Hypoglycemia Heparin Sodium (Porcine) (Heparin) 5,000 unit SQ Q12 [facility] Last Admin: 09/03/18 20:39 Dose: 5,000 unit Documented by: Potassium Chloride 40 meq/ (Dextrose) 520 mls @ 130 mls/hr IV UD PRN PRN Reason: K+ = or < 3.5 Magnesium Sulfate (Magnesium Sulfate) 2 gm in 50 mls @ 50 mls/hr IV UD PRN PRN Reason: MG = or < 1.7 Acetaminophen (Ofirmev) 1,000 mg in 100 mls @ 200 mls/hr IV Q6HP PRN PRN Reason: PAIN/FEVER > 101 Last Infusion: 09/03/18 23:07 Dose: Infused Documented by: Ceftriaxone Sodium 2 gm/ (Dextrose) 50 mls @ 100 mls/hr IV Q24H [facility]; Protocol Stop: 09/04/18 10:00 Last Admin: 09/04/18 08:48 Dose: 100 mls/hr Documented by: Acyclovir Sodium 1,000 mg/ (Sodium Chloride) 250 mls @ 250 mls/hr IV Q8H [facility] Last Admin: 09/04/18 09:36 Dose: 250 mls/hr Documented by: Vancomycin HCl 2,000 mg/ (Sodium Chloride) 500 mls @ 250 mls/hr IV ONCE ONE Stop: 09/04/18 11:59 Last Admin: 09/04/18 08:48 Dose: 250 mls/hr Documented by: Vancomycin HCl 1,500 mg/ (Sodium Chloride) 500 mls @ 333.3 mls/hr IV Q24H [facility] Ceftriaxone Sodium 2 gm/ (Dextrose) 50 mls @ 100 mls/hr IV Q12H [facility] Insulin Glargine (Lantus) 100 unit SQ DAILY [facility] Last Admin: 09/04/18 09:39 Dose: Not Given Documented by: Insulin Glargine (Lantus) 50 unit SQ HS [facility] Last Admin: 09/03/18 20:38 Dose: 50 unit Documented by: Insulin Human Lispro (Humalog) 0 unit SQ ACHS [facility]; Protocol Last Admin: 09/04/18 09:20 Dose: 3 units Documented by: Iron Carb/Multivit/[place]/Folic Acid (Multivitamin W/Minerals) 1 tab PO DAILY [facility] Last Admin: 09/04/18 09:38 Dose: Not Given Documented by: Lisinopril (Zestril) 10 mg PO BID [facility] Last Admin: 09/04/18 09:37 Dose: Not Given Documented by: Magnesium Oxide (Magnesium Oxide) 400 mg PO DAILY [facility] Last Admin: 09/04/18 09:38 Dose: Not Given Documented by: Melatonin (Melatonin 3mg Tablet) 6 mg PO HSP PRN PRN Reason: Insomnia Last Admin: 09/03/18 20:46 Dose: 6 mg Documented by: Metformin HCl (Glucophage) 850 mg PO BIDCC [facility] Last Admin: 09/04/18 09:20 Dose: Not Given Documented by: Mupirocin (Bactroban Oint 2%) 1 dose NARES BID [facility] Last Admin: 09/03/18 20:38 Dose: 1 dose Documented by: Ondansetron HCl (Zofran) 4 mg IV Q4-6HP PRN PRN Reason: Nausea And Vomiting Alfuzosin Hcl [ Alfuzosin Hcl Er] 10 Mg Cap 1 dose PO QDAY [facility] Last Admin: 09/04/18 09:37 Dose: Not Given Documented by: Polyethylene Glycol (Miralax) 17 gm PO DAILYP PRN PRN Reason: Constipation Senna/Docusate Sodium (Senna Plus Tablet) 1 tab PO HS [facility] Last Admin: 09/03/18 20:39 Dose: Not Given Documented by: Sodium Chloride (Saline Flush) 10 ml IV Q8 [facility] Last Admin: 09/04/18 05:54 Dose: 10 ml Documented by: Spironolactone (Aldactone) 25 mg PO BID [facility] Last Admin: 09/04/18 09:20 Dose: Not Given Documented by: Tamsulosin HCl (Flomax) 0.4 mg PO QDAY [facility] Last Admin: 09/04/18 09:38 Dose: Not Given Documented by: Thiamine HCl (Vitamin B1) 100 mg PO DAILY [facility] Last Admin: 09/04/18 09:37 Dose: Not Given Documented by: Vancomycin HCl (Vancomycin Per Pharmacy) 1 order IV UD [facility]; Protocol Transfer Discharge Sum: Hosp Hospital course: Transfer diagnosis * Acute encephalitis likely viral. Protein 242, WBC 307, mononuclear cells 99%. On empiric acyclovir/antibacterial coverage. Neurology/ID recommends MRI rule out hemorrhage. Patient transfer to tertiary Center for further manageme nt * Acute change in mental status -dramatic deterioration in the last 48 hours.. Patient agitated and confused to time place and person. * Exacerbation of diastolic CHF- recent echo from August 18 - 70%/moderate pericardial effusion, continuing to diuresis with over 3000 cc net negative fluid balance. Continue SUHAS inhibitor/spironolactone * Recent influenza/bilateral maxillary sinusitis -was treated on Augmentin through 09/04 (prescribed an EGD during previous visit 08/24) * Pericardial effusion on echo. Was evaluated by cardiology at [facility] last month and no intervention was indicated at that time. Stable at this time. Will need outpatient cardiology follow-up * Severe deconditioning/weakness-continued daily PT OT/nutrition support * DM type -cc diet/basal insulin/metformin * Hypertension-- amlodipine/lisinopril/spironolactone * BPH continue tamsulosin * Neuropathy -gabapentin restarted on 09/03 due to exacerbation of neuropathic pain * CAD-continue aspirin/statin/SUHAS inhibitor * Hyperlipidemia-on statin * History of gout on allopurinol Brief hospital course Mr. Guallpa is a 73 year old M morbidly obese with history of CAD/recent pericardial effusion/chronic kidney disease/DM type BINA on CPAP who presents to [facility] ER along with his with progressive decline in overall health over the last one week which resulted in patient being nonfunctional, laying in bed. As per patient has [facility] able to perform activities of daily living and has not been in his normal self. Patient has been fatigued and lethargic with poor appetite. He also complains of low-grade fever. However denies shortness of breath, cough, diarrhea. He was recently diagnosed with sinusitis/influenza during the last 2 ER visits on august 18 in August 24 and has been on antibiotics( Augmentin). Last 24 hours patient has been barely arousable, unable to eat or get out of bed. Patient normally is independent with ADLs and this is a dramatic change from his baseline. Initial workup in the ER consistent with change in mental status with a tox screen positive for opioids however normal biochemical profile except for sodium 127. No clear evidence of infection. There was no response to [employer]. Hospitalist service was consulted for admission in light of above At the time evaluation patient is able to answer some of the questions but confused to time and place. He denies chest pain headache. Endorses to weakness and loss of appetite. No recent travel to [facility] or [place]. Symptoms started after he returned from [place] to [place] 3 weeks ago 09/02-patient doing a lot better. Able to eat breakfast. Lucid and alert and oriented. at bedside. Intermittently confused but much improved since admission. Continue to hold opioids/gabapentin. Consider MRI brain if patient fails to improve over the next 24 hours. Patient requests sedation for MRI as he is claustrophobic. No telemetry events. No other concerns expressed for nursing staff 09/03- patient clinically better but intermittently confused. at bedside. Eating breakfast himself. No overnight fever or chills. Plan MRI today however patient will need sedation due to claustrophobia. Check ABG/ammonia. Stable labs, sodium 128. No fever chills or telemetry events. 09/04-patient demonstrates a dramatic change in mental status this morning very confused and tried to get out of bed and totally disoriented to time place and person. at bedside who endorses that this is a dramatic change and a deterioration from his recent state. Normal blood glucose. ABG normal pH. Currently on home CPAP with oxygen bleed for hypoxia. Normal ammonia/biochemical profile. Ambien/diphenhydramine/opioids have been held since admission. Patient already on thiamine. Etiology still remains in question. MAXIMUM TEMPERATURE 100 over the last 24 hours. Empiric treatment for encephalitis initiated with acyclovir/vancomycin/Rocephin. Lumbar puncture ordered with extensive studies including CSF cytology/protein, glucose, cultures, viral panel/VDRL/fungal and viral cultures. The continued deterioration warrants neurology consultation along with brain MRI and hence the need for transfer to tertiary Center. Transfer coordination underway with [facility]. 2:40 PM- call received from [place]. Case discussed with Dr. Hinds neuro logist. [place] coordinating with radiology if patient's body habitus would preclude MRI, also patient would require continuous EEG monitoring. Anticipate transfer later tonight or early in the morning depending on bed availability. 09/05-CSF studies consistent with viral encephalitis with protein 242, white cells 307, mononuclear leukocytosis 99%. Extensive testing including meningeal encephalitis panel, AFB, viral, fungal cultures and serologies pending. Patient currently on acyclovir/Rocephin vancomycin. Clinical improvement noted since yesterday and now able to respond to some questions. and daughter at bedside. Case discussed with Dr. Martin neurologist at [place]. Recommended continuing treatment until transfer. Case subsequent discussed with [facility] is Dr. Muller who graciously accepted the patient for further management. Family was informed of the transfer plan continue PCU care. - Time Spent with Patient Total time spent providing and/or coordinating transfer services: Greater than 30 minutes Transfer Discharge Sum: Exam - Constitutional Vitals: Vital Signs Temp Pulse Pulse Resp BP BP Pulse Ox 09/04/18 08:00 97.8 F 16 145/79 93 09/04/18 04:40 98.4 F 09/04/18 03:53 132/72 09/03/18 23:25 98.5 F 78 24 H 128/84 92 09/03/18 23:19 80 128/84 89 L 09/03/18 20:00 96 09/03/18 19:36 100.0 F H 85 88 24 H 153/78 153/78 91 09/03/18 15:57 98.4 F 77 16 152/78 92 09/03/18 12:00 98.2 F 20 147/77 91 09/03/18 10:30 99.2 F H Intake and Output 09/03/18 09/04/18 09/04/18 21:59 05:59 13:59 Intake Total 240 580 Output Total 1250 Balance -1010 580 Intake: IV 100 Oral 240 480 Output: Void Amount 1250 Other: Meal Dinner Percent of Meal Consumed 25% Stool Size Moderate Stool Color Brown Green Stool Consistency Formed Loose # of times incontinent of 1 Bowels Weight 277 lb 12.8 oz Transfer Discharge Sum: Data Procedures and tests throughout hospitalization: Transfer Discharge Sum: A/P - Problem Maintenance (1) Change in mental status Status: Acute Qualifiers: Altered mental status type: disorientation Qualified Code(s): R41.0 - Di sorientation, unspecified - Plan Functional capacity at transfer: bed bound Overall status at transfer: patient is not back to baseline Disposition: [facility]
[2018-09-04] MEDS: HEPARIN 5,000 UNIT/ML VIAL SQ SCH (10:33)
[2018-09-04] MEDS: MUPIROCIN OINT 2% 22GM NARES SCH ×2 (11:13→23:42)
--- NOTE | 2018-09-04 13:20 | Procedure Note ---
Procedures - Lumbar Puncture Consent obtained: written consent Date of Procedure: 09/04/18 (called at 1132) Time out performed: Yes Patient position: left lateral decubitus Skin prep: Povidone-Iodine 1% Local anesthetic used: Lidocaine 1% Amount of anesthesia used (mLs): 5 Spinal needle gauge: 20G (CSF flow inadeqaute, changed to 18g spinal needle, CSF flow improved.) Interspace used: L3-L4 Fluid initially obtained: bloody (successive tubes cleared) Complications: none Additional comments: called by Dr Quick for ICU pt w ALOC and low grade temp for diag LP anticipated difficult tap for ALOC, agitation and morbid obese habitus pt minimally cooperative/hyperkinetic verbally reassured and redirected initially kit 20g did not allow flow of csf despite repositioning attempts changed to 18g spinal needle, much improved flow but still highly dependent on pt movement/agitation adequate volumes collected, tubes closed and organized in succession, instructions for labeling given. family consulted before and after procedure, grateful for success and awaiting results Dr Quick present and aware
[2018-09-04] MEDS ORDERED: ACYCLOVIR SODIUM 500 MG VIAL IV SCH (14:00)
--- NOTE | 2018-09-04 14:43 | Internal Med Progress Note ---
Medical - PN: Subj Patient information: Note initiated : 09/04/18 at 2:40 pm Service Date, if different from initiated Date: [] Patient: Unique Guallpa 73 y/o M admitted on 09/03/18 for headache, lethargy. Chief Complaint: [] Interval history: Mr. Guallpa is a 73 year old M morbidly obese with history of CAD/recent pericardial effusion/chronic kidney disease/DM type BINA on CPAP who presents to [facility] ER along with his with progressive decline in overall health over the last one week which resulted in patient being nonfunctional, laying in bed. As per patient has [facility] able to perform activities of daily living and has not been in his normal self. Patient has been fatigued and lethargic with poor appetite. He also complains of low-grade fever. However denies shortness of breath, cough, diarrhea. He was recently diagnosed with sinusitis/influenza during the last 2 ER visits on august 18 in August 24 and has been on antibiotics( Augmentin). Last 24 hours patient has been barely arousable, unable to eat or get out of bed. Patient normally is independent with ADLs and this is a dramatic change from his baseline. Initial workup in the ER consistent with change in mental status with a tox screen positive for opioids however normal biochemical profile except for sodium 127. No clear evidence of infection. There was no response to [employer]. Hospitalist service was consulted for admission in light of above At the time evaluation patient is able to answer some of the questions but confused to time and place. He denies chest pain headache. Endorses to weakness and loss of appetite. No recent travel to [facility] or [place]. 09/02-patient doing a lot better. Able to eat breakfast. Lucid and alert and oriented. at bedside. Intermittently confused but much improved since admission. Continue to hold opioids/gabapentin. Consider MRI brain if patient fails to improve over the next 24 hours. Patient requests sedation for MRI as he is claustrophobic. No telemetry events. No other concerns expressed for nursing staff 09/03- patient clinically better but intermittently confused. at bedside. Eating breakfast himself. No overnight fever or chills. Plan MRI today however patient will need sedation due to claustrophobia. Check ABG/ammonia. Stable labs, sodium 128. No fever chills or telemetry events. 09/04-patient demonstrates a dramatic change in mental status this morning very confused and tried to get out of bed and totally disoriented to time place and person. at bedside who endorses that this is a dramatic change and a deterioration from his recent state. Normal blood glucose. ABG normal pH. Currently on home CPAP with oxygen bleed for hypoxia. Normal ammonia/biochemical profile. Ambien/diphenhydramine/opioids have been held since admission. Patient already on thiamine. Etiology still remains in que stion. MAXIMUM TEMPERATURE 100 over the last 24 hours. Empiric treatment for encephalitis initiated with acyclovir/vancomycin/Rocephin. Lumbar puncture ordered with extensive studies including CSF cytology/protein, glucose, cultures, viral panel/VDRL/fungal and viral cultures. The continued dete rioration warrants neurology consultation along with brain MRI and hence the need for transfer to tertiary Center. Transfer coordination underway with [facility]. 2:40 PM- call received from [facility]. Case discussed with Dr. Hinds neurologist. [facility] coordinating with radiology if patient's body habitus would preclude MRI, also patient would require continuous EEG monitoring. Anticipate transfer later tonight or early in the morning depending on bed availability. - Constitutional Vitals: Vital Signs Temp Pulse Resp BP Pulse Ox 98.2 F 98 H 24 H 159/73 98 09/04/18 12:00 09/04/18 12:10 09/04/18 12:00 09/04/18 12:00 09/04/18 12:10 Period Temp Pulse Resp BP Sys/Leonard Pulse Ox Last 24 Hr 97.8 F-100.0 F 76-99 16-24 128-180/72-88 89-100 Intake and Output 09/04/18 09/04/18 09/04/18 05:59 13:59 21:59 Intake Total 580 300 Output Total 1250 Balance 580 -950 Intake & Output: Intake & Output 09/04/18 09/04/18 09/04/18 05:59 13:59 21:59 Intake Total 580 300 Output Total 1250 Balance 580 -950 Intake: IV 100 300 Zovirax 1,000 mg In Sodium 250 Chloride 0.9% 250 ml @ 250 mls/ hr IV Q8H [facility] Rx#:[id number] Rocephin 2 gm In Dextrose 5% in 50 Water 50 ml @ 100 mls/hr IV Q24H [facility] Rx#:[id number] Oral 480 Output: Urine Catheter Amount 1250 Uretheral (Underwood) 1250 Other: Urine Appearance Uretheral (Underwood) Clear Urine Color Uretheral ([place]wood) Light Agatha General appearance: no acute distress Exam: Continues to be confused and agitated Barely able to cooperate the lumbar puncture Nonlabored breathing No telemetry events Foleys draining clear urine Medical - PN: Obj Da - Labs CBC & Chem 7: 09/04/18 03:49 09/04/18 03:48 Labs: Abnormal Lab Results 09/04/18 09/04/18 09/04/18 07:50 03:49 03:48 RBC Hgb Hct POC Hct RDW 14.6 H Seg Neutrophils % 79 H Lymphocytes % 13 L RBC Morphology Polychromasia ABG pH 7.49 H ABG pO2 46 L* ABG HCO3 30.3 H ABG Total CO2 31.5 H ABG O2 Saturation 81.1 L ABG Base Excess 6.3 H ABG Methemoglobin 0.3 L VBG pO2 VBG HCO3 VBG Total CO2 VBG O2 Saturation VBG Base Excess Carboxyhemoglobin 2.0 H Total Hemoglobin POC Sodium Sodium 128 L POC Potassium POC Chloride Chloride 84 L Carbon Dioxide 31 H POC BUN BUN 31 H Creatinine 1.3 H POC Creatinine Glucose 183 H POC Glucose Triglycerides 259 H Ur Oxycodone Screen 09/03/18 09/03/18 09/03/18 10:29 03:35 03:35 RBC 4.42 L Hgb 13.0 L Hct 39.6 L POC Hct RDW Seg Neutrophils % Lymphocytes % RBC Morphology Polychromasia ABG pH ABG pO2 67 L ABG HCO3 26.1 H ABG Total CO2 27.3 H ABG O2 Saturation ABG Base Excess 2.1 H ABG Methemoglobin VBG pO2 VBG HCO3 VBG Total CO2 VBG O2 Saturation VBG Base Excess Carboxyhemoglobin Total Hemoglobin POC Sodium Sodium 128 L POC Potassium POC Chloride Chloride 86 L Carbon Dioxide POC BUN BUN 28 H Creatinine POC Creatinine Glucose 187 H POC Glucose Triglycerides 218 H Ur Oxycodone Screen 09/02/18 09/02/18 09/02/18 07:55 03:51 03:51 RBC 4.22 L Hgb 12.3 L Hct 38.0 L POC Hct RDW Seg Neutrophils % 85 H Lymphocytes % 8 L RBC Morphology Abnorm A Polychromasia 1+ A ABG pH ABG pO2 ABG HCO3 ABG Total CO2 ABG O2 Saturation ABG Base Excess ABG Methemoglobin VBG pO2 VBG HCO3 VBG Total CO2 VBG O2 Saturation VBG Base Excess Carboxyhemoglobin Total Hemoglobin POC Sodium Sodium 127 L 130 L POC Potassium POC Chloride Chloride 90 L Carbon Dioxide POC BUN BUN 28 H Creatinine POC Creatinine Glucose 184 H POC Glucose Triglycerides 203 H Ur Oxycodone Screen 09/02/18 09/01/18 09/01/18 00:20 20:30 18:25 RBC Hgb Hct POC Hct RDW Seg Neutrophils % Lymphocytes % RBC Morphology Polychromasia ABG pH ABG pO2 ABG HCO3 ABG Total CO2 ABG O2 Saturation ABG Base Excess ABG Methemoglobin 0.3 L VBG pO2 64 H VBG HCO3 28.9 H VBG Total CO2 30.2 H VBG O2 Saturation 84.8 H VBG Base Excess 3.8 H Carboxyhemoglobin 4.0 H Total Hemoglobin 12.4 L POC Sodium Sodium 127 L POC Potassium POC Chloride Chloride Carbon Dioxide POC BUN BUN Creatinine POC Creatinine Glucose POC Glucose Triglycerides Ur Oxycodone Screen Suspect positive A 09/01/18 09/01/18 17:25 17:25 RBC 4.22 L Hgb 12.5 L Hct 37.5 L POC Hct 37.0 L RDW Seg Neutrophils % Lymphocytes % RBC Morphology Polychromasia ABG pH ABG pO2 ABG HCO3 ABG Total CO2 ABG O2 Saturation ABG Base Excess ABG Methemoglobin VBG pO2 VBG HCO3 VBG Total CO2 VBG O2 Saturation VBG Base Excess Carboxyhemoglobin Total Hemoglobin POC Sodium 127 L Sodium 128 L POC Potassium 5.3 H POC Chloride 91 L Chloride 91 L Carbon Dioxide POC BUN 29 H BUN 31 H Creatinine POC Creatinine 1.4 H Glucose 230 H POC Glucose 228 H Triglycerides Ur Oxycodone Screen Meds: Medications Acetaminophen (Tylenol) 650 mg PO Q4-6HP PRN PRN Reason: PAIN/FEVER > 101 Last Admin: 09/03/18 21:27 Dose: 650 mg Documented by: Albuterol Sulfate (Ventolin) 2 puff INH Q6HP PRN PRN Reason: cough, shortness of breath, wh Allopurinol (Zylopriim) 300 mg PO QDAY PAT Last Admin: 09/04/18 09:37 Dose: Not Given Documented by: Amlodipine Besylate (Norvasc) 10 mg PO QDAY [facility] Last Admin: 09/04/18 09:37 Dose: Not Given Documented by: Amoxicillin/Clavulanate Potassium (Augmentin) 875 mg PO BIDCC [facility] Stop: 09/05/18 08:01 Last Admin: 09/04/18 09:20 Dose: Not Given Documented by: Aspirin (Ecotrin) 325 mg PO DAILY [facility] Last Admin: 09/04/18 09:38 Dose: Not Given Documented by: Atorvastatin Calcium (Lipitor) 40 mg PO HS [facility] Last Admin: 09/03/18 20:46 Dose: 40 mg Documented by: Clonidine HCl (Catapres) 0.2 mg PO DAILY [facility] Last Admin: 09/04/18 09:38 Dose: Not Given Documented by: Cyanocobalamin (Vitamin B-12) 1,000 mcg PO BID [facility] Stop: 09/06/18 21:01 Last Admin: 09/04/18 09:37 Dose: Not Given Documented by: Dextrose (Dextrose 50%) 0 ml IV UD PRN PRN Reason: Hypoglycemia Diagnostic Test (Pha) (Accu-Chek) 1 each FS ACHS [facility] Last Admin: 09/04/18 12:09 Dose: 1 each Documented by: Docusate Sodium (Colace) 100 mg PO BID [facility] Last Admin: 09/04/18 09:20 Dose: Not Given Documented by: Fenofibrate (Antara) 129 mg PO DAILY [facility] Last Admin: 09/04/18 09:20 Dose: Not Given Documented by: Ferrous Sulfate (Ferrous Sulfate) 325 mg PO BIDCC [facility] Last Admin: 09/04/18 09:20 Dose: Not Given Documented by: Furosemide (Lasix) 40 mg IV BIDD [facility] Last Admin: 09/04/18 09:19 Dose: 40 mg Documented by: Gabapentin (Neurontin) 300 mg PO BID [facility] Last Admin: 09/04/18 09:38 Dose: Not Given Documented by: Glucose (Insta-Glucose) 15 gm PO PRN PRN PRN Reason: Hypoglycemia Heparin Sodium (Porcine) (Heparin) 5,000 unit SQ Q12 [facility] Last Admin: 09/04/18 10:33 Dose: Not Given Documented by: Potassium Chloride 40 meq/ (Dextrose) 520 mls @ 130 mls/hr IV UD PRN PRN Reason: K+ = or < 3.5 Magnesium Sulfate (Magnesium Sulfate) 2 gm in 50 mls @ 50 mls/hr IV UD PRN PRN Reason: MG = or < 1.7 Acetaminophen (Ofirmev) 1,000 mg in 100 mls @ 200 mls/hr IV Q6HP PRN PRN Reason: PAIN/FEVER > 101 Last Infusion: 09/03/18 23:07 Dose: Infused Documented by: Acyclovir Sodium 1,000 mg/ (Sodium Chloride) 250 mls @ 250 mls/hr IV Q8H [facility] Last Infusion: 09/04/18 10:36 Dose: Infused Documented by: Vancomycin HCl 1,500 mg/ (Sodium Chloride) 500 mls @ 333.3 mls/hr IV Q24H [facility] Ceftriaxone Sodium 2 gm/ (Dextrose) 50 mls @ 100 mls/hr IV Q12H [facility] Insulin Glargine (Lantus) 100 unit SQ DAILY [facility] Last Admin: 09/04/18 09:39 Dose: Not Given Documented by: Insulin Glargine (Lantus) 50 unit SQ [facility] Last Admin: 09/03/18 20:38 Dose: 50 unit Documented by: Insulin Human Lispro (Humalog) 0 unit SQ [facility]; Protocol Last Admin: 09/04/18 12:17 Dose: 3 units Documented by: Iron Carb/Multivit/[place]/Folic Acid (Multivitamin W/Minerals) 1 tab PO DAILY [facility] Last Admin: 09/04/18 09:38 Dose: Not Given Documented by: Lisinopril (Zestril) 10 mg PO BID [facility] Last Admin: 09/04/18 09:37 Dose: Not Given Documented by: Magnesium Oxide (Magnesium Oxide) 400 mg PO DAILY [facility] Last Admin: 09/04/18 09:38 Dose: Not Given Documented by: Melatonin (Melatonin 3mg Tablet) 6 mg PO HSP PRN PRN Reason: Insomnia Last Admin: 09/03/18 20:46 Dose: 6 mg Documented by: Metformin HCl (Glucophage) 850 [facility] Last Admin: 09/04/18 09:20 Dose: Not Given Documented by: Mupirocin (Bactroban Oint 2%) 1 dose NARES BID [facility] Last Admin: 09/04/18 11:13 Dose: 1 dose Documented by: Ondansetron HCl (Zofran) 4 mg IV Q4-6HP PRN PRN Reason: Nausea And Vomiting Last Admin: 09/04/18 09:45 Dose: 4 mg Documented by: Alfuzosin Hcl [ Alfuzosin Hcl Er] 10 Mg Cap 1 dose PO QDAY [facility] Last Admin: 09/04/18 09:37 Dose: Not Given Documented by: Polyethylene Glycol (Miralax) 17 gm PO DAILYP PRN PRN Reason: Constipation Senna/Docusate Sodium (Senna Plus Tablet) 1 tab PO HS [facility] Last Admin: 09/03/18 20:39 Dose: Not Given Documented by: Sodium Chloride (Saline Flush) 10 ml IV Q8 [facility] Last Admin: 09/04/18 05:54 Dose: 10 ml Documented by: Spironolactone (Aldactone) 25 mg PO BID [facility] Last Admin: 09/04/18 09:20 Dose: Not Given Documented by: Tamsulosin HCl (Flomax) 0.4 mg PO QDAY [facility] Last Admin: 09/04/18 09:38 Dose: Not Given Documented by: Thiamine HCl (Vitamin B1) 100 mg PO DAILY [facility] Last Admin: 09/04/18 09:37 Dose: Not Given Documented by: Vancomycin HCl (Vancomycin Per Pharmacy) 1 order IV [place] [facility] [place]; Protocol - ABG Interpretation ABG results: 09/01/18 09/03/18 09/04/18 18:25 10:29 07:50 ABG pH 7.45 7.49 H ABG pCO2 38.9 41.1 ABG pO2 67 L 46 L* ABG HCO3 26.1 H 30.3 H ABG Total CO2 27.3 H 31.5 H ABG O2 Saturation 81.1 L ABG Base Excess 2.1 H 6.3 H ABG Methemoglobin 0.3 L 0.3 L VBG pH 7.42 VBG pCO2 45.2 VBG pO2 64 H VBG HCO3 28.9 H VBG Total CO2 30.2 H VBG O2 Saturation 84.8 H VBG Base Excess 3.8 H Medical - PN: A/P - Time Spent With Patient Total time spent is greater than 50% in coordination of care (as documented) at patient's floor/unit and/or counseling patient: 25 - 35 minutes (1) Change in mental status Status: Acute Assessment and plan: * Acute encephalitis -unclear etiology. dramatic deterioration noted since this morning compared to last 48 hours. Patient agitated and confused to time place and person. Stat CT head no evidence of hemorrhage. No significant abnormality on biochemical profile within normal ABG/ammonia/electro lytes/glucose. Started on acyclovir/Vanco/Rocephin for empiric encephalitis treatment. On thiamine since admission. Lumbar puncture results awaited, traumatic tap. Off sedatives and hypnotics including zolpidem/diphenhydramine/opioids MRI cannot be performed due to to patient's body habitus. Patient will require transfer to [facility] for further workup including neuroimaging/continuous EEG monitoring/neurology consultation. Possible transfer later this evening or early a.m based on [facility] transfer Center. * Exacerbation of diastolic CHF- recent echo from August 18 - 70%/moderate pe ricardial effusion, continuing to diuresis with over 3000 cc net negative fluid balance. Continue SUHAS inhibitor/spironolactone * Recent influenza/bilateral maxillary sinusitis-on Augmentin through 09/05 (prescribed an EGD during previous visit 08/24) * Pericardial effusion on echo. Was evaluated by cardiology at [facility] last month and no intervention was indicated at that time. Will need outpa tient cardiology follow-up * Severe deconditioning/weakness-continued daily PT OT/nutrition support * DM type -cc diet/basal insulin/metformin * Hypertension-- amlodipine/lisinopril/spironolactone * BPH continue tamsulosin * Neuropathy -gabapentin restarted on 09/03 due to significant neuropathic pain * CAD-continue aspirin/statin/SUHAS inhibitor * Hyperlipidemia-on statin * History of gout no acute flare. Continue allopurinol * Prophylaxis heparin * Full code Plan * Await lumbar puncture studies * Await transfer to tertiary Center for further neuroimaging/continuous EEG/neurology consult * PT OT/nutrition support * Pre-existing medical condition management as above Time spent on transfer coordination/management including serial evaluations/lumbar puncture/discussion with family and [facility] neurologist over 90 minutes Current Visit: Yes
[2018-09-04] MEDS: ACETAMINOPHEN 1,000 MG/100 ML BOTTLE IV PRN (15:38)
[2018-09-04 16:10] LABS: Appearance,CSF CLEAR; Nucleated Cells,CSF 307 /cumm (0-5); Red Blood Cell,CSF 982 /cumm (0-1)
[2018-09-04 16:36] LABS: Glucose,CSF 92 mg/dL (45-75); Total Protein,CSF 242 mg/dL (15.0-60.0)
[2018-09-04 16:42] LABS: Lymphocytes,CSF 88 % (40-80); Monocytes,CSF 11 % (15-45); Neutrophils,CSF 1 % (0-6); Total Cell Ct,CSF 100
[2018-09-04] MEDS: cefTRIAXone 2 GM in DEXTROSE 5% IN WATER 50 ML IV SCH (21:53)
[2018-09-04] MEDS: ACYCLOVIR SODIUM 500 MG VIAL IV SCH (21:54)
[2018-09-04] MEDS: ATORVASTATIN 20 MG TABLET PO SCH (23:43)
[2018-09-04] MEDS: SENNOSIDES/DOCUSATE SODIUM 1 TAB TABLET PO SCH (23:43)
[2018-09-05] MEDS: LISINOPRIL 10 MG TABLET PO SCH ×2 (03:01→08:30)
[2018-09-05] MEDS: HEPARIN 5,000 UNIT/ML VIAL SQ SCH ×2 (04:22→08:15)
[2018-09-05 05:13] LABS: Hematocrit 40.6 % (41.0-55.0); Hemoglobin 13.4 g/dL (13.5-16.5); Mean Cell Volume 89.9 fL (80.0-100.0); Mean Corpuscular HGB Conc 32.9 g/dL (31.0-36.0); Mean Platelet Volume 8.3 fL (7.4-10.4); Platelet Count 226 K/mcL (140-440); RBC 4.52 M/mcL (4.50-5.90); Red Cell Distribution Width 14.4 % (11.5-14.5); WBC 10.2 K/mcL (4.5-11.0)
[2018-09-05] MEDS: ACYCLOVIR SODIUM 500 MG VIAL IV SCH (05:23)
[2018-09-05 05:34] LABS: ALT/SGPT 12 U/l (0-40); AST/SGOT 12 U/l (0-37); Albumin 3.6 gm/dL (3.2-5.2); Albumin/Globulin Ratio 1.1 (1.0-2.3); Alkaline Phosphatase 70 U/L (39-117); Bilirubin,Direct < 0.2 mg/dL (0.0-0.3); Bilirubin,Total 0.3 mg/dL (0.0-1.0); Blood Urea Nitrogen 35 mg/dl (8-23); Calcium 9.2 mg/dl (8.6-10.4); Carbon Dioxide 31 mmol/L (22-30); Chloride 88 mmol/L (96-108); Gamma Glutamyl Transpeptidase 32 U/L (8-61); Globulin 3.3 gm/dL (2.2-3.7); Glomerular Filtration Rate 45; Glucose 188 mg/dL (70-105); Lactate Dehydrogenase 175 U/L (94-250); Magnesium 1.9 mg/dL (1.6-2.5); Phosphorous 3.2 mg/dL (2.7-4.5); Potassium 3.7 mmol/L (3.3-5.1); Sodium 130 mmol/L (133-145); Triglycerides 217 mg/dl (<150); Uric Acid 8.2 mg/dL (2.5-8.0)
[2018-09-05] MEDS: 0.9 % SODIUM CHLORIDE 10 ML SYRINGE IV SCH (05:40)
[2018-09-05 06:29] LABS: Eosinophils % (Manual) 1 % (0-7); Lymphocytes % 8 % (15-49); Monocytes % (Manual) 9 % (1-12); Platelet Estimate NORMAL (NORMAL); RBC Morphology NORMAL (NORMAL); Segmented Neutrophils % 82 % (38-78)
[2018-09-05] MEDS: FUROSEMIDE 40 MG/4 ML VIAL IV SCH (08:06)
[2018-09-05] MEDS: metFORMIN 850 MG TABLET PO SCH (08:07)
[2018-09-05] MEDS: AMOXICILLIN/POTASSIUM CLAV 875 MG TABLET PO SCH (08:07)
[2018-09-05] MEDS: FERROUS SULFATE 325 MG TABLET PO SCH (08:07)
[2018-09-05] MEDS: TAMSULOSIN 0.4 MG CAPSULE PO SCH (08:14)
[2018-09-05] MEDS: CYANOCOBALAMIN (VITAMIN B-12) 500 MCG TABLET PO SCH (08:15)
[2018-09-05] MEDS: DOCUSATE SODIUM 100 MG CAPSULE PO SCH (08:16)
[2018-09-05] MEDS: cloNIDine HCL 0.1 MG TABLET PO SCH (08:16)
[2018-09-05] MEDS: amLODIPine 10 MG TABLET PO SCH (08:16)
[2018-09-05] MEDS: INSULIN LISPRO 1 UNIT/0.01 ML UNIT SQ SCH (08:17)
[2018-09-05] MEDS: INSULIN GLARGINE, HUMAN 1 UNIT/0.01 ML SQ SCH (08:17)
[2018-09-05] MEDS: SPIRONOLACTONE 25 MG TABLET PO SCH (08:19)
[2018-09-05] MEDS: GABAPENTIN 300 MG CAPSULE PO SCH (08:21)
[2018-09-05] MEDS: ASPIRIN 325 MG ENTERIC COATED TABLET PO SCH (08:23)
[2018-09-05] MEDS: MUPIROCIN OINT 2% 22GM NARES SCH (08:24)
[2018-09-05] MEDS: ALFUZOSIN HCL 10 MG PO SCH (08:25)
[2018-09-05] MEDS: MAGNESIUM OXIDE 400 MG TABLET PO SCH (08:25)
[2018-09-05] MEDS: MULTIVIT,THER IRON,CA,FA & MIN 1 TABLET PO SCH (08:29)
[2018-09-05] MEDS: FENOFIBRATE 43 MG CAPSULE PO SCH (08:29)
[2018-09-05] MEDS: THIAMINE 100 MG TABLET PO SCH (08:30)
[2018-09-05] MEDS: ALLOPURINOL 300 MG TABLET PO SCH (08:30)
[2018-09-05] MEDS: cefTRIAXone 2 GM in DEXTROSE 5% IN WATER 50 ML IV SCH (08:44)
[2018-09-05] MEDS ORDERED: VANCOMYCIN 1,500 MG in 0.9 % SODIUM CHLORIDE 500 ML IV SCH (10:00)
[2018-09-05] MEDS ORDERED: ACYCLOVIR SODIUM IV SCH (14:00)
[2018-09-05] MEDS ORDERED: SODIUM CHLORIDE 0.9% IV SCH (14:00)
[2018-09-06 12:52] LABS: Opiate Confirmation POSITIVE (N)
[2018-09-09 08:04] LABS: West Nile Virus IgM Antiobdy < 0.90 index
--- NOTE | 2018-09-10 10:25 | Emergency Department Note ---
ED Note Addendum Note Addendum: I reviewed this case of SACHI Wade. We discussed this case on the day he was seen in the ER and I agree with her decision to admit the patient. I agree with his evaluation management documentation
== END 2018-09-05 08:45 | disposition short-term general hospital (02) | DRG 97 ==
LOC: ED 17:04 → ICU 17:04
PROVIDERS: ADMIT Internal Medicine; ATTEND Internal Medicine